=== PATIENT | male | born 1955 | race African-American/Black ===

== ENCOUNTER 2017-11-23 13:39 | Inpatient (IN) | payer MEDICARE ==
[~2017-11-23] VITALS: Ht 167.6 cm; Wt 64.1 kg
[2017-11-23 14:00] VITALS: BP 194/84; PULSE 77; RESP 20; TEMP 96.5; O2SAT 99
[2017-11-23] MEDS ORDERED: PERC5TAB12 PO (14:06)
[2017-11-23] MEDS ORDERED: ONDANSETRON HCL 4 MG/2 ML VIAL IM ONE (17:00)
[2017-11-23] MEDS ORDERED: MORPHINE SULFATE 4 MG/ML INJ IM ONE (17:00)
[2017-11-23 18:09] VITALS: BP 155/76; PULSE 74; RESP 18; O2SAT 98
--- NOTE | 2017-11-23 18:13 | RADRPT ---
EXAM DATE/TIME: 11/23/2017 17:47 [place] COMPARISON: No previous studies available for comparison. INDICATIONS : Fall last night. MEDICAL HISTORY : Hepatitis c. SURGICAL HISTORY : None. ENCOUNTER: Initial ACUITY: 1 day PAIN SCORE: 10/10 LOCATION: Left Hip FINDINGS: There is a comminuted intertrochanteric fracture of the left femur with medial angulation deformity. Femoral head appears intact. No subluxations. The bony pelvis is intact and has normal morphology. CONCLUSION: Mildly comminuted intertrochanteric fracture with medial angulation of the left femur. Artemio Champion MD on November 23, 2017 at 18:10 Board Certified Radiologist. This report was verified electronically.
[2017-11-23] MEDS ORDERED: SODIUM CHLORIDE 0.9% FLUSH 10 ML FLUSH IV FLUSH PRN ×2 (18:15→21:00)
[2017-11-23] MEDS ORDERED: SODIUM CHLOR 0.9% 1000 ML INJ 1,000 ML IV ONE (18:30)
[2017-11-23] MEDS ORDERED: ACETAMINOPHEN 1000 MG/100 ML 100 ML IV ONE (18:30)
[2017-11-23] MEDS ORDERED: MORPHINE SULFATE 2 MG/ML INJ IV PUSH ONE (18:30)
--- NOTE | 2017-11-23 18:46 | PD ---
HPI Chief Complaint: Hip Injury Time Seen by Provider: 17:47 Travel History International Travel<30 days: No Contact w/Intl Traveler<30days: No Traveled to known affect area: No History of Present Illness HPI Patient is a 62-year-old male presenting to emergency department for evaluation of left hip pain. Patient states had a mechanical fall in his kitchen last night landing on his left hip. He denies any head injury or loss of consciousness. He states his son was at home and helped him into a chair. He reports that he was unable to get out of the chair, unable to bear weight and his son helped him to bed. When he was unable to walk this morning he was brought to emergency department for evaluation. Patient states at rest his pain as a 2 out of 10, if he tries to ambulate or bear weight it's a 10 out of 10. He states his pain is throbbing and aching in nature. Symptom onset was sudden, symptom severity is moderate, there are no alleviating factors. Pain is exacerbated with movement. Patient denies significant past medical history other than chronic back and neck pain. He normally walks with a cane. PFSH Past Medical History Hepatitis: Yes (C) Musculoskeletal: Yes (CHRONIC BACK) Tetanus Vaccination: < 5 Years Past Surgical History Surgical History: No Previous Surgery Social History Alcohol Use: Yes (BEER) Tobacco Use: Yes (CIGARS) Substance Use: No (HX IV) Allergies-Medications (Allergen,Severity, Reaction): Coded Allergies: No Known Allergies (Unverified , 11/23/17) Reported Meds & Prescriptions Reported Meds & Active Scripts Active Reported Percocet (Oxycodone-Acetaminophen) 5-325 mg Tab 1-2 Tab PO Q4H PRN Review of Systems Except as stated in HPI: all other systems reviewed are Neg Musculoskeletal: Positive: Limited ROM, Pain Physical Exam Narrative GENERAL: Thin, well-developed, alert male. Presenting in no acute distress. SKIN: Warm and dry. HEAD: Atraumatic. Normocephalic. EYES: Pupils equal and round. No scleral icterus. No injection or drainage. ENT: No nasal bleeding or discharge. Mucous membranes pink and moist. NECK: Trachea midline. No JVD. CARDIOVASCULAR: Regular rate and rhythm. RESPIRATORY: No accessory muscle use. Clear to auscultation. Breath sounds equal bilaterally. GASTROINTESTINAL: Abdomen soft, non-tender, nondistended. Hepatic and splenic margins not palpable. MUSCULOSKELETAL: Extremities without clubbing, cyanosis, or edema. No obvious deformities. 2+ dorsalis pedal pulses bilaterally. NEUROLOGICAL: Awake and alert. No obvious cranial nerve deficits. Motor grossly within normal limits. Five out of 5 muscle strength in the arms and legs. Normal speech. PSYCHIATRIC: Appropriate mood and affect; insight and judgment normal. Data Data Last Documented VS Vital Signs Date Time Temp Pulse Resp B/P (MAP) Pulse Ox O2 Delivery O2 Flow Rate FiO2 11/23/17 18:09 74 18 155/76 (102) 98 Room Air 11/23/17 14:00 96.5 Orders Orders Hip, Uni(Ap&Lat) W Ap Pelvis (11/23/17 ) Morphine Inj (Morphine Inj) (11/23/17 17:00) Ondansetron Inj (Zofran Inj) (11/23/17 17:00) Complete Blood Count With Diff (11/23/17 18:) Comprehensive Metabolic Panel (11/23/17 18:) Act Partial Throm Time (Ptt) (11/23/17 18:) Prothrombin Time / Inr (Pt) (11/23/17 18:) Iv Access Insert/Monitor (11/23/17:) Ecg Monitoring (11/23/17 18:) Oximetry (11/23/17 18:) NPO (11/23/17 18:) Sodium Chloride 0.9% Flush (Ns Flush) (11/23/17:) Sodium Chlor 0.9% 1000 Ml Inj (Ns 1000 M (11/23/17 18:) Type And Screen (11/23/17 18:) Urinalysis - C+S If Indicated (11/23/17 18:) Morphine Inj (Morphine Inj) (11/23/17 18:) Acetaminophen 1000 Mg/100 Ml (Ofirmev 10 (11/23/17 18:) Creatine Kinase (Cpk) (11/23/17 18:20) CKMB (11/23/17 18:) CKMB% (11/23/17 18:) Admit Order (Ed Use Only) (11/23/17 20:01) Labs Laboratory Tests Test 11/23/17 18:20 White Blood Count 5.8 TH/MM3 Red Blood Count 4.98 MIL/MM3 Hemoglobin 15.6 GM/DL Hematocrit 45.9 % Mean Corpuscular Volume 92.3 FL Mean Corpuscular Hemoglobin 31.2 PG Mean Corpuscular Hemoglobin Concent 33.8 % Red Cell Distribution Width 13.6 % Platelet Count 169 TH/MM3 Mean Platelet Volume 7.8 FL Neutrophils (%) (Auto) 73.9 % Lymphocytes (%) (Auto) 14.7 % Monocytes (%) (Auto) 8.2 % Eosinophils (%) (Auto) 2.6 % Basophils (%) (Auto) 0.6 % Neutrophils # (Auto) 4.3 TH/MM3 Lymphocytes # (Auto) 0.9 TH/MM3 Monocytes # (Auto) 0.5 TH/MM3 Eosinophils # (Auto) 0.1 TH/MM3 Basophils # (Auto) 0.0 TH/MM3 CBC Comment DIFF FINAL Differential Comment Prothrombin Time 11.4 SEC Prothromb Time International Ratio 1.1 RATIO Activated Partial Thromboplast Time 29.3 SEC Urine Color YELLOW Urine Turbidity CLEAR Urine pH 5.5 Urine Specific [place] 1.018 Urine Protein TRACE mg/dL Urine Glucose (UA) NEG mg/dL Urine Ketones NEG mg/dL Urine Occult Blood NEG Urine Nitrite NEG Urine Bilirubin NEG Urine Urobilinogen 4.0 MG/DL Urine Leukocyte Esterase NEG Urine RBC 3 /hpf Urine WBC 2 /hpf Urine Squamous Epithelial Cells <1 /hpf Urine Amorphous Sediment RARE Urine Mucus FEW /lpf Urine Sperm RARE Microscopic Urinalysis Comment CULT NOT INDICATED Blood Urea Nitrogen 12 MG/DL Creatinine 0.91 MG/DL Random Glucose 90 MG/DL Total Protein 6.8 GM/DL Albumin 3.5 GM/DL Calcium Level 8.9 MG/DL Alkaline Phosphatase 72 U/L Aspartate Amino Transf (AST/SGOT) 40 U/L Alanine Aminotransferase (ALT/SGPT) 39 U/L Total Bilirubin 1.1 MG/DL Sodium Level 133 MEQ/L Potassium Level 4.3 MEQ/L Chloride Level 101 MEQ/L Carbon Dioxide Level 25.1 MEQ/L Anion Gap 7 MEQ/L Estimat Glomerular Filtration Rate 102 ML/MIN Total Creatine Kinase 602 U/L Creatine Kinase MB 10.5 NG/ML Creatine Kinase MB % 1.7 % [facility] Medical Decision Making Medical Screen Exam Complete: Yes Emergency Medical Condition: Yes Interpretation(s) Laboratory Tests Test 11/23/17 18:20 White Blood Count 5.8 TH/MM3 Red Blood Count 4.98 MIL/MM3 Hemoglobin 15.6 GM/DL Hematocrit 45.9 % Mean Corpuscular Volume 92.3 FL Mean Corpuscular Hemoglobin 31.2 PG Mean Corpuscular Hemoglobin Concent 33.8 % Red Cell Distribution Width 13.6 % Platelet Count 169 TH/MM3 Mean Platelet Volume 7.8 FL Neutrophils (%) (Auto) 73.9 % Lymphocytes (%) (Auto) 14.7 % Monocytes (%) (Auto) 8.2 % Eosinophils (%) (Auto) 2.6 % Basophils (%) (Auto) 0.6 % Neutrophils # (Auto) 4.3 TH/MM3 Lymphocytes # (Auto) 0.9 TH/MM3 Monocytes # (Auto) 0.5 TH/MM3 Eosinophils # (Auto) 0.1 TH/MM3 Basophils # (Auto) 0.0 TH/MM3 CBC Comment DIFF FINAL Differential Comment Prothrombin Time 11.4 SEC Prothromb Time International Ratio 1.1 RATIO Activated Partial Thromboplast Time 29.3 SEC Urine Color YELLOW Urine Turbidity CLEAR Urine pH 5.5 Urine Specific [place] 1.018 Urine Protein TRACE mg/dL Urine Glucose (UA) NEG mg/dL Urine Ketones NEG mg/dL Urine Occult Blood NEG Urine Nitrite NEG Urine Bilirubin NEG Urine Urobilinogen 4.0 MG/DL Urine Leukocyte Esterase NEG Urine RBC 3 /hpf Urine WBC 2 /hpf Urine Squamous Epithelial Cells <1 /hpf Urine Amorphous Sediment RARE Urine Mucus FEW /lpf Urine Sperm RARE Microscopic Urinalysis Comment CULT NOT INDICATED Blood Urea Nitrogen 12 MG/DL Creatinine 0.91 MG/DL Random Glucose 90 MG/DL Total Protein 6.8 GM/DL Albumin 3.5 GM/DL Calcium Level 8.9 MG/DL Alkaline Phosphatase 72 U/L Aspartate Amino Transf (AST/SGOT) 40 U/L Alanine Aminotransferase (ALT/SGPT) 39 U/L Total Bilirubin 1.1 MG/DL Sodium Level 133 MEQ/L Potassium Level 4.3 MEQ/L Chloride Level 101 MEQ/L Carbon Dioxide Level 25.1 MEQ/L Anion Gap 7 MEQ/L Estimat Glomerular Filtration Rate 102 ML/MIN Total Creatine Kinase 602 U/L Vital Signs Date Time Temp Pulse Resp B/P (MAP) Pulse Ox O2 Delivery O2 Flow Rate FiO2 3/15/18 18:09 74 18 155/76 (102) 98 Room Air 11/23/17 14:00 96.5 77 20 194/84 (120) 99 Differential Diagnosis Fracture versus dislocation versus sprain versus strain versus rhabdomyolysis versus other Narrative Course Patient is a 62-year-old male presenting to emergency for evaluation of left hip pain. Patient is neurovascularly intact, patient was initially evaluated in the ambulance haul, imaging was ordered, patient was given morphine and Zofran for pain. Patient was placed in a medical bed, x-ray shows a mildly comminuted intertrochanteric fracture with medial angulation of the left femur. Patient will be kept nothing by mouth, labs, IV access ordered. Patient be given additional dose of morphine as he is still stating his pain is elevated. He'll also be given dose of IV acetaminophen. CBC with no acute findings Chemistry with a CPK 602, patient was given 1 L of IV fluids Urinalysis is unremarkable Paged on-call orthopedic surgeon as well as hospitalist for admission. Patient is resting comfortably, vital signs are stable. Dr. Kirk accepted admission, admit orders placed. Waiting for orthopedic surgeon to return page. Discussed with Dr. Sanders, patient be placed in 5 pounds of Betts's traction, he will be kept nothing by mouth after midnight. He will see patient in the morning. Diagnosis Primary Impression: Femur fracture, left Qualified Codes: S72.142A - Displaced intertrochanteric fracture of left femur , initial encounter for closed fracture Admitting Information Admitting Physician Requests: Admit Condition: Stable Lilliana Butler Nov 23, 2017 18:46
[2017-11-23 18:49] LABS: AUTOMATED NEUTROPHIL # 4.3 TH/MM3 (1.8-7.7); BASOPHIL % 0.6 % (0.0-2.0); EOSINOPHIL # 0.1 TH/MM3 (0-0.4); EOSINOPHIL % 2.6 % (0.0-4.0); HEMATOCRIT 45.9 % (39.0-51.0); HEMOGLOBIN 15.6 GM/DL (13.0-17.0); LYMPH % 14.7 % (9.0-44.0); LYMPHOCYTE # 0.9 TH/MM3 (1.0-4.8); MEAN CELL VOLUME 92.3 FL (80.0-100.0); MEAN CORPUSCULAR HEMOGLOBIN 31.2 PG (27.0-34.0); MEAN CORPUSCULAR HGB CONC 33.8 % (32.0-36.0); MEAN PLATELET VOLUME 7.8 FL (7.0-11.0); MONO % 8.2 % (0.0-8.0); MONOCYTE # 0.5 TH/MM3 (0-0.9); NEUT % 73.9 % (16.0-70.0); PLATELET COUNT 169 TH/MM3 (150-450); RED BLOOD COUNT 4.98 MIL/MM3 (4.50-5.90); RED CELL DISTRIBUTION WIDTH 13.6 % (11.6-17.2); WHITE BLOOD COUNT 5.8 TH/MM3 (4.0-11.0)
--- NOTE | 2017-11-23 18:55 | PD ---
Physical Exam Date Seen by Provider: Nov 23, 2017 Time Seen by Provider: 18:30 Narrative I, Dr. Alicea, have reviewed the advance practice practitioner's documentation and am in agreement, met with the patient face to face, made the diagnosis, and the medical decision making was done by me. *My assessment and Findings: Patient is seen and evaluated with PA, please see PA note for further details. Here because he fell onto his left hip, having hip pain, unable to walk. He has a hip fracture seen in the x-ray. He denies any other injury or head injury or loss of consciousness. Case will need to be discussed with Dr. Narvaez of orthopedics. Lab work initiated. Data Data Last Documented VS Vital Signs Date Time Temp Pulse Resp B/P (MAP) Pulse Ox O2 Delivery O2 Flow Rate FiO2 11/23/17 18:09 74 18 155/76 (102) 98 Room Air 11/23/17 14:00 96.5 Orders Orders Hip, Uni(Ap&Lat) W Ap Pelvis (11/23/17 ) Morphine Inj (Morphine Inj) (11/23/17 17:00) Ondansetron Inj (Zofran Inj) (11/23/17 17:00) Complete Blood Count With Diff (11/23/17 18:09) Comprehensive Metabolic Panel (11/23/17 18:09) Act Partial Throm Time (Ptt) (11/23/17 18:09) Prothrombin Time / Inr (Pt) (11/23/17 18:09) Iv Access Insert/Monitor (11/23/17 18:) Ecg Monitoring (11/23/17 18:) Oximetry (11/23/17 18:) NPO (11/23/17 18:09) Sodium Chloride 0.9% Flush (Ns Flush) (11/23/17 18:) Sodium Chlor 0.9% 1000 Ml Inj (Ns 1000 M (11/23/17 18:30) Type And Screen (11/23/17:) Urinalysis - C+S If Indicated (11/23/17 18:22) Morphine Inj (Morphine Inj) (11/23/17 18:30) Acetaminophen 1000 Mg/100 Ml (Ofirmev 10 (11/23/17 18:30) Creatine Kinase (Cpk) (11/23/17 18:20) Labs Laboratory Tests Test 11/23/17 18:20 White Blood Count 5.8 TH/MM3 Red Blood Count 4.98 MIL/MM3 Hemoglobin 15.6 GM/DL Hematocrit 45.9 % Mean Corpuscular Volume 92.3 FL Mean Corpuscular Hemoglobin 31.2 PG Mean Corpuscular Hemoglobin Concent 33.8 % Red Cell Distribution Width 13.6 % Platelet Count 169 TH/MM3 Mean Platelet Volume 7.8 FL Neutrophils (%) (Auto) 73.9 % Lymphocytes (%) (Auto) 14.7 % Monocytes (%) (Auto) 8.2 % Eosinophils (%) (Auto) 2.6 % Basophils (%) (Auto) 0.6 % Neutrophils # (Auto) 4.3 TH/MM3 Lymphocytes # (Auto) 0.9 TH/MM3 Monocytes # (Auto) 0.5 TH/MM3 Eosinophils # (Auto) 0.1 TH/MM3 Basophils # (Auto) 0.0 TH/MM3 CBC Comment DIFF FINAL Differential Comment MDM Medical Record Reviewed: Yes Supervised Visit with GONZALEZ: Yes Diagnosis Primary Impression: Closed left hip fracture Admitting Information Admitting Physician Requests: Admit Merlin Alicea MD Nov 23, 2017 18:55
[2017-11-23 18:56] LABS: AMORPHOUS SEDIMENT, URINE RARE; BILIRUBIN, URINE NEG (NEG); BLOOD, URINE NEG (NEG); GLUCOSE,URINE NEG (NEG); KETONE, URINE NEG (NEG); MUCUS URINE FEW /lpf (OCC); NITRITE,URINE NEG (NEG); PH, URINE 5.5 (5.0-8.5); SPERM, URINE RARE; SQUAMOUS EPITHELIAL CELL URINE <1 /hpf (0-5); URINE COLOR YELLOW (YELLW/STRAW); URINE LEUKOCYTE ESTERASE NEG (NEG)
[2017-11-23 19:08] LABS: ALBUMIN 3.5 GM/DL (3.4-5.0); ALT (GPT) 39 U/L (12-78); AST (GOT) 40 U/L (15-37); BICARBONATE 25.1 MEQ/L (21.0-32.0); BLOOD UREA NITROGEN 12 MG/DL (7-18); CALCIUM 8.9 MG/DL (8.5-10.1); CHLORIDE 101 MEQ/L (98-107); CREATININE 0.91 MG/DL (0.60-1.30); GLOMERULAR FILTRATION RATE 102 ML/MIN (>89); GLUCOSE,RANDOM 90 MG/DL (74-106); SODIUM (NA) 133 MEQ/L (136-145)
[2017-11-23 19:09] LABS: INTERNATIONAL NORMALIZED RATIO 1.1 RATIO; PROTHROMBIN TIME - PATIENT 11.4 SEC (9.8-11.6)
[2017-11-23 19:11] LABS: ALKALINE PHOSPHATASE 72 U/L (45-117); TOTAL BILIRUBIN ADULT 1.1 MG/DL (0.2-1.0); TOTAL PROTEIN 6.8 GM/DL (6.4-8.2)
[2017-11-23] MEDS: DOCUSATE SODIUM 50 MG/SENNA 8.6 MG TAB PO SCH ×2 (21:00→23:29)
[2017-11-23] MEDS ORDERED: ACETAMINOPHEN 325 MG TAB PO PRN (21:00)
[2017-11-23] MEDS ORDERED: ONDANSETRON HCL 4 MG/2 ML VIAL IVP PRN (21:00)
[2017-11-23] MEDS ORDERED: LACTULOSE SYRUP 20 GM/30 ML CUP PO PRN (21:00)
[2017-11-23] MEDS ORDERED: MAGNESIUM HYDROXIDE SUSP 30 ML CUP PO PRN (21:00)
[2017-11-23] MEDS ORDERED: NALOXONE HCL 0.4 MG/ML AMP IV PUSH PRN (21:00)
[2017-11-23] MEDS ORDERED: SENNOSIDES 8.6 MG TAB PO PRN (21:00)
[2017-11-23] MEDS ORDERED: BISACODYL 10 MG SUPP RECTAL PRN (21:00)
[2017-11-23 21:20] VITALS: BP 120/57; PULSE 76; RESP 18; TEMP 98.7; O2SAT 95
[2017-11-23] MEDS ORDERED: TAMSULOSIN HCL 0.4 MG CAP PO ONE (22:00)
[2017-11-23] MEDS: SODIUM CHLORIDE 0.9% FLUSH 10 ML FLUSH IV FLUSH SCH (22:01)
[2017-11-23] MEDS: SODIUM CHLOR 0.9% 1000 ML INJ 1,000 ML IV SCH (22:06)
--- NOTE | 2017-11-23 22:14 | HHI.HP ---
[facility] Unknown Admission Diagnosis LEFT FEMUR FRACTURE Diagnoses: Travel History International Travel<30 Days: No Contact w/Intl Traveler <30 Da: No Traveled to Known Affected Are: No History of Present Illness 62-year-old male with a past medical history significant for chronic back pain and BPH presents to the emergency department status post a fall. The patient reports last night he slipped and fell on a tile floor and fell onto his left side. He was unable to stand at that time and his son helped him to bed. He reports that today he found he was unable to weight-bear or walking came to the emergency department for further evaluation. Review of Systems Except as stated in HPI: all other systems reviewed are Neg Denies fever or chills Denies blurry vision, otorrhea, rhinorrhea Denies sore throat and cough No chest pain, palpitations No shortness of breath or wheezing No abdominal pain Denies constipation/diarrhea/nausea/vomiting Denies muscle pain Denies focal weakness No rashes Past Family Social History Past Medical History Chronic back pain BPH Past Surgical History C5-6 fusion Reported Medications Reported Meds & Active Scripts Active Reported Percocet (Oxycodone-Acetaminophen) 5-325 mg Tab 1-2 Tab PO Q4H PRN Allergies: Coded Allergies: No Known Allergies (Unverified , 11/23/17) Family History Mother with diabetes mellitus Social History Smokes cigars. Drinks approximately 4 beers per day. Denies illicit drugs. Physical Exam Vital Signs Vital Signs Date Time Temp Pulse Resp B/P (MAP) Pulse Ox O2 Delivery O2 Flow Rate FiO2 11/23/17 21:20 98.7 76 18 120/57 (78) 95 11/23/17 18:09 74 18 155/76 (102) 98 Room Air 11/23/17 14:00 96.5 77 20 194/84 (120) 99 Physical Exam GENERAL: male lying in bed SKIN: No rashes, ecchymoses or lesions. Cool and dry. HEAD: Atraumatic. Normocephalic. No temporal or scalp tenderness. EYES: Pupils equal round and reactive. Extraocular motions intact. No scleral icterus. No injection or drainage. ENT: Nose without bleeding, purulent drainage or septal hematoma. Throat without erythema, tonsillar hypertrophy or exudate. Uvula midline. Airway patent. NECK: Trachea midline. No JVD or lymphadenopathy. Supple, nontender, no meningeal signs. CARDIOVASCULAR: Regular rate and rhythm without murmurs, gallops, or rubs. RESPIRATORY: Clear to auscultation. Breath sounds equal bilaterally. No wheezes , rales, or rhonchi. GASTROINTESTINAL: Abdomen soft, non-tender, nondistended. No hepato-splenomegaly , or palpable masses. No guarding. MUSCULOSKELETAL: Left leg held in flexion, neurovascularly intact NEUROLOGICAL: Awake and alert. Cranial nerves II through XII intact. Motor and sensory grossly within normal limits. Normal speech. Laboratory Laboratory Tests Test 11/23/17 18:20 White Blood Count 5.8 Red Blood Count 4.98 Hemoglobin 15.6 Hematocrit 45.9 Mean Corpuscular Volume 92.3 Mean Corpuscular Hemoglobin 31.2 Mean Corpuscular Hemoglobin Concent 33.8 Red Cell Distribution Width 13.6 Platelet Count 169 Mean Platelet Volume 7.8 Neutrophils (%) (Auto) 73.9 Lymphocytes (%) (Auto) 14.7 Monocytes (%) (Auto) 8.2 Eosinophils (%) (Auto) 2.6 Basophils (%) (Auto) 0.6 Neutrophils # (Auto) 4.3 Lymphocytes # (Auto) 0.9 Monocytes # (Auto) 0.5 Eosinophils # (Auto) 0.1 Basophils # (Auto) 0.0 CBC Comment DIFF FINAL Differential Comment Prothrombin Time 11.4 Prothromb Time International Ratio 1.1 Activated Partial Thromboplast Time 29.3 Urine Color YELLOW Urine Turbidity CLEAR Urine pH 5.5 Urine Specific [place] 1.018 Urine Protein TRACE Urine Glucose (UA) NEG Urine Ketones NEG Urine Occult Blood NEG Urine Nitrite NEG Urine Bilirubin NEG Urine Urobilinogen 4.0 Urine Leukocyte Esterase NEG Urine RBC 3 Urine WBC 2 Urine Squamous Epithelial Cells <1 Urine Amorphous Sediment RARE Urine Mucus FEW Urine Sperm RARE Microscopic Urinalysis Comment CULT NOT INDICATED Blood Urea Nitrogen 12 Creatinine 0.91 Random Glucose 90 Total Protein 6.8 Albumin 3.5 Calcium Level 8.9 Alkaline Phosphatase 72 Aspartate Amino Transf (AST/SGOT) 40 Alanine Aminotransferase (ALT/SGPT) 39 Total Bilirubin 1.1 Sodium Level 133 Potassium Level 4.3 Chloride Level 101 Carbon Dioxide Level 25.1 Anion Gap 7 Estimat Glomerular Filtration Rate 102 Total Creatine Kinase 602 Creatine Kinase MB 10.5 Creatine Kinase MB % 1.7 Result Diagram: 11/23/17181911/23/171819 Caprini VTE Risk Assessment Caprini VTE Risk Assessment: Mod/High Risk (score >= 2) Caprini Risk Assessment Model Point Value = 1 Point Value = 2 Point Value = 3 Point Value = 5 Age 41-60 Minor surgery BMI > 25 kg/m2 Swollen legs Varicose veins or History of unexplained or recurrent spontaneous Oral contraceptives or hormone replacement Sepsis (< 1 month) Serious lung disease, including pneumonia (< 1 month) Abnormal pulmonary function Acute myocardial infarction Congestive heart failure (< 1 month) History of inflammatory bowel disease Medical patient at bed rest Age 61-74 Arthroscopic surgery Major open surgery (> 45 min) Laparoscopic surgery (> 45 min) Malignancy Confined to bed (> 72 hours) Immobilizing plaster cast Central venous access Age >= 75 History of VTE Family history of VTE Factor V Leiden Prothrombin [id number] Lupus anticoagulant Anticardiolipin antibodies Elevated serum homocysteine Heparin-induced thrombocytopenia Other congenital or acquired thrombophilia Stroke (< 1 month) Elective arthroplasty Hip, pelvis, or leg fracture Acute spinal cord injury (< 1 month) Prophylaxis Regimen Total Risk Factor Score Risk Level Prophylaxis Regimen 0-1 Low Early ambulation 2 Moderate Order ONE of the following: *Sequential Compression Device (SCD) *Heparin 5000 units SQ BID 3-4 Higher Order ONE of the following medications: *Heparin 5000 units SQ TID *Enoxaparin/Lovenox 40 mg SQ daily (WT < 150 kg, CrCl > 30 mL/min) *Enoxaparin/Lovenox 30 mg SQ daily (WT < 150 kg, CrCl > 10-29 mL/min) *Enoxaparin/Lovenox 30 mg SQ BID (WT < 150 kg, CrCl > 30 mL/min) AND/OR *Sequential Compression Device (SCD) 5 or more Highest Order ONE of the following medications: *Heparin 5000 units SQ TID (Preferred with Epidurals) *Enoxaparin/Lovenox 40 mg SQ daily (WT < 150 kg, CrCl > 30 mL/min) *Enoxaparin/Lovenox 30 mg SQ daily (WT < 150 kg, CrCl > 10-29 mL/min) *Enoxaparin/Lovenox 30 mg SQ BID (WT < 150 kg, CrCl > 30 mL/min) AND *Sequential Compression Device (SCD) Assessment and Plan Assessment and Plan Assessment/plan: 1. Femur fracture Hip x-ray significant for mildly comminuted intertrochanteric fracture with medial angulation of the left femur Morphine for pain Nothing by mouth Orthopedic surgery consulted, appreciate assistance 2. Elevated CK Likely secondary to fall IV fluid hydration 3. BPH/chronic back pain Continue home Flomax Pain management as above FEN NPO NS at 100 cc/hour Electrolytes: Monitor and replete prn Holding pharmacologic anticoagulation in anticipation of operative intervention Physician Certification 2 Midnight Certification Type: Admission for Inpatient Services Order for Inpatient Services The services are ordered in accordance with Medicare regulations or non- Medicare payer requirements, as applicable. In the case of services not specified as inpatient-only, they are appropriately provided as inpatient services in accordance with the 2-midnight benchmark. Estimated LOS (days): 2 2 days is the estimated time the patient will need to remain in the hospital, assuming treatment plan goals are met and no additional complications. Post-Hospital Plan: Not yet determined Fior Kirk MD Nov 23, 2017 22:14
[2017-11-23] MEDS ORDERED: LORazepam 1 MG TAB PO PRN (22:15)
[2017-11-23] MEDS ORDERED: LORazepam 2 MG/ML VIAL IV PUSH PRN ×4 (22:15)
[2017-11-23] MEDS ORDERED: FLUMAZENIL 0.5 MG/5 ML VIAL IV PUSH PRN (22:15)
[2017-11-23] MEDS ORDERED: LORazepam 2 MG TAB PO PRN (22:15)
[2017-11-23] MEDS: MORPHINE SULFATE 4 MG/ML INJ IV PUSH PRN (23:31)
[2017-11-24] VITALS: BP 120/59; PULSE 68; PULSE 77; PULSE 82; RESP 18; TEMP 99.1; O2SAT 96
[2017-11-24] MEDS: MORPHINE SULFATE 4 MG/ML INJ IV PUSH PRN ×2 (03:25→11:36)
[2017-11-24 04:00] VITALS: BP 158/88; PULSE 70; RESP 18; TEMP 99.4; O2SAT 97
[2017-11-24] MEDS: SODIUM CHLOR 0.9% 1000 ML INJ 1,000 ML IV SCH ×2 (06:31→17:00)
[2017-11-24 07:13] LABS: BASOPHIL % 0.3 % (0.0-2.0); EOSINOPHIL # 0.2 TH/MM3 (0-0.4); EOSINOPHIL % 2.4 % (0.0-4.0); HEMATOCRIT 43.5 % (39.0-51.0); HEMOGLOBIN 14.9 GM/DL (13.0-17.0); LYMPH % 14.3 % (9.0-44.0); MEAN CORPUSCULAR HEMOGLOBIN 31.8 PG (27.0-34.0); MEAN CORPUSCULAR HGB CONC 34.2 % (32.0-36.0); MONO % 8.7 % (0.0-8.0); MONOCYTE # 0.6 TH/MM3 (0-0.9); NEUT % 74.3 % (16.0-70.0); PLATELET COUNT 154 TH/MM3 (150-450); RED BLOOD COUNT 4.68 MIL/MM3 (4.50-5.90); RED CELL DISTRIBUTION WIDTH 13.5 % (11.6-17.2); WHITE BLOOD COUNT 6.8 TH/MM3 (4.0-11.0)
[2017-11-24 07:41] LABS: BICARBONATE 25.2 MEQ/L (21.0-32.0); CALCIUM 8.6 MG/DL (8.5-10.1); CREATININE 0.87 MG/DL (0.60-1.30)
--- NOTE | 2017-11-24 07:50 | PD.CONS ---
HPI Service Orthopedic Surgeons Consult Requested By Dr. Fior Kirk Reason for Consult Fracture of the left hip Primary Care Physician Unknown Admission Diagnosis LEFT FEMUR FRACTURE Diagnoses: Chief Complaint: Left hip pain and inability to ambulate History of Present Illness This is a very pleasant 62-year-old male who states that 2 nights ago he slipped and fell at home landing on his left hip. His son helped him to bed. The next day, he had difficulty with ambulation and presented to [facility] emergency room. X-ray showed evidence of a mildly comminuted but relatively nondisplaced left peritrochanteric hip fracture. I have been asked to see him in consultation regarding his orthopedic injuries Review of Systems Constitutional: DENIES: Diaphoretic episodes, Fatigue, Fever, Weight gain, Weight loss, Chills, Dizziness, Change in appetite, Night Sweats Endocrine: DENIES: Heat/cold intolerance, Polydipsia, Polyuria, Polyphagia Eyes: DENIES: Blurred vision, Diplopia, Eye inflammation, Eye pain, Vision loss , Photosensitivity, Double Vision Ears, nose, mouth, throat: DENIES: Tinnitus, Hearing loss, Vertigo, Nasal discharge, Oral lesions, Throat pain, Hoarseness, Ear Pain, Running Nose, Epistaxis, Sinus Pain, Toothache, Odynophagia Respiratory: DENIES: Apneas, Cough, Snoring, Wheezing, Hemoptysis, Sputum production, Shortness of breath Cardiovascular: DENIES: Chest pain, Palpitations, Syncope, Dyspnea on Exertion , PND, Lower Extremity Edema, Orthopnea, Claudication Gastrointestinal: DENIES: Abdominal pain, Black stools, Bloody stools, Constipation, Diarrhea, Nausea, Vomiting, Difficulty Swallowing, Anorexia Genitourinary: DENIES: Sexual dysfunction, Urinary frequency, Urinary incontinence, Urgency, Hematuria, Dysuria, Nocturia, Penile Discharge, Testicular Pain, Testicular Swelling Musculoskeletal: COMPLAINS OF: Joint pain, Back pain Integumentary: DENIES: Abnormal pigmentation, Nail changes, Pruritus, Rash Hematologic/lymphatic: DENIES: Bruising, Lymphadenopathy Immunologic/allergic: DENIES: Eczema, Urticaria Neurologic: DENIES: Abnormal gait, Headache, Localized weakness, Paresthesias, Seizures, Speech Problems, Tremor, Poor Balance Psychiatric: DENIES: Anxiety, Confusion, Mood changes, Depression, Hallucinations, Agitation, Suicidal Ideation, Homicidal Ideation, Delusions Past Family Social History Past Medical History Chronic back pain BPH Past Surgical History C5-6 fusion Allergies: Coded Allergies: No Known Allergies (Unverified , 11/23/17) Active Ordered Medications Current Medications Medications (Trade) Dose Ordered Sig/Irina Route Start Time Stop Time Status Last Admin Sodium Chloride 1,000 ml @ 100 mls/hr Q10H IV 11/23/17 21:00 11/23/17 22:06 (NS Flush) 2 ml UNSCH PRN IV FLUSH 11/23/17 21:00 (NS Flush) 2 ml BID IV FLUSH 11/23/17 21:00 11/23/17 22:01 (Tylenol) 650 mg Q4H PRN PO 11/23/17 21:00 (Zofran Inj) 4 mg Q6H PRN IVP 11/23/17 21:00 (Narcan Inj) 0.4 mg UNSCH PRN IV PUSH 11/23/17 21:00 (Bhumi-Colace) 1 tab BID PO 11/23/17 21:00 11/23/17 23:29 (Milk Of Magnesia Liq) 30 ml Q12H PRN PO 11/23/17 21:00 (Senokot) 17.2 mg Q12H PRN PO 11/23/17 21:00 (Dulcolax Supp) 10 mg DAILY PRN RECTAL 11/23/17 21:00 (Lactulose Liq) 30 ml DAILY PRN PO 11/23/17 21:00 (Morphine Inj) 4 mg Q3H PRN IV PUSH 11/23/17 21:00 11/24/17 03:25 (Folate) 1 mg DAILY PO 11/24/17 09:00 11/29/17 08:59 (Vitamin B1) 100 mg DAILY PO 11/24/17 09:00 (Theragran M Tab) 1 tab DAILY PO 11/24/17 09:00 11/29/17 08:59 (Romazicon Inj) 0.2 mg Q1M PRN IV PUSH 11/23/17 22:15 (Ativan) 1 mg Q4H PRN PO 11/23/17 22:15 (Ativan Inj) 1 mg Q4H PRN IV PUSH 11/23/17 22:15 (Ativan) 2 mg Q2H PRN PO 11/23/17 22:15 (Ativan Inj) 2 mg Q2H PRN IV PUSH 11/23/17 22:15 (Ativan Inj) 2 mg Q1H PRN IV PUSH 11/23/17 22:15 (Ativan Inj) 2 mg Q15M PRN IV PUSH 11/23/17 22:15 Reported Meds & Active Scripts Active Reported Percocet (Oxycodone-Acetaminophen) 5-325 mg Tab 1-2 Tab PO Q4H PRN Family History Mother with diabetes mellitus Social History Smokes cigars. Drinks approximately 4 beers per day. Denies illicit drugs. Physical Exam Vital Signs Vital Signs Date Time Temp Pulse Resp B/P (MAP) Pulse Ox O2 Delivery O2 Flow Rate FiO2 11/24/17 04:00 99.4 70 18 158/88 (111) 97 11/24/17 03:35 18 11/24/17 00:00 99.1 68 18 120/59 (79) 96 11/24/17 00:00 77 11/24/17 00:00 82 11/23/17 21:20 98.7 76 18 120/57 (78) 95 11/23/17 18:09 74 18 155/76 (102) 98 Room Air 11/23/17 14:00 96.5 77 20 194/84 (120) 99 Physical Exam The patient is lying in bed. He is in Betts's traction. HEENT: Normocephalic atraumatic pupils equal round reactive. NECK: Supple. No abnormal masses. Full range of motion. CHEST: Clear to auscultation with no rales or rhonchi's or wheezes. HEART: Regular rate and rhythm. No murmurs. ABDOMEN: Soft, nontender, no masses. Normal active bowel sounds. GENITOURINARY: Deferred. MUSCULOSKELETAL: He has moderate tenderness and mild swelling of the left hip. Range of motion is restricted and painful. No ecchymosis or redness. He has no tenderness about either upper extremity. He has moderate low back discomfort to palpation. Left leg: Dorsalis pedis 2+. Sensation normal. He wiggles his toes freely without obvious discomfort. Laboratory Laboratory Tests Test 11/23/17 18:20 11/24/17 06:23 White Blood Count 5.8 6.8 Red Blood Count 4.98 4.68 Hemoglobin 15.6 14.9 Hematocrit 45.9 43.5 Mean Corpuscular Volume 92.3 93.0 Mean Corpuscular Hemoglobin 31.2 31.8 Mean Corpuscular Hemoglobin Concent 33.8 34.2 Red Cell Distribution Width 13.6 13.5 Platelet Count 169 154 Mean Platelet Volume 7.8 8.0 Neutrophils (%) (Auto) 73.9 74.3 Lymphocytes (%) (Auto) 14.7 14.3 Monocytes (%) (Auto) 8.2 8.7 Eosinophils (%) (Auto) 2.6 2.4 Basophils (%) (Auto) 0.6 0.3 Neutrophils # (Auto) 4.3 5.0 Lymphocytes # (Auto) 0.9 1.0 Monocytes # (Auto) 0.5 0.6 Eosinophils # (Auto) 0.1 0.2 Basophils # (Auto) 0.0 0.0 CBC Comment DIFF FINAL DIFF FINAL Differential Comment Prothrombin Time 11.4 Prothromb Time International Ratio 1.1 Activated Partial Thromboplast Time 29.3 Urine Color YELLOW Urine Turbidity CLEAR Urine pH 5.5 Urine Specific [place] 1.018 Urine Protein TRACE Urine Glucose (UA) NEG Urine Ketones NEG Urine Occult Blood NEG Urine Nitrite NEG Urine Bilirubin NEG Urine Urobilinogen 4.0 Urine Leukocyte Esterase NEG Urine RBC 3 Urine WBC 2 Urine Squamous Epithelial Cells <1 Urine Amorphous Sediment RARE Urine Mucus FEW Urine Sperm RARE Microscopic Urinalysis Comment CULT NOT INDICATED Blood Urea Nitrogen 12 12 Creatinine 0.91 0.87 Random Glucose 90 85 Total Protein 6.8 Albumin 3.5 Calcium Level 8.9 8.6 Alkaline Phosphatase 72 Aspartate Amino Transf (AST/SGOT) 40 Alanine Aminotransferase (ALT/SGPT) 39 Total Bilirubin 1.1 Sodium Level 133 136 Potassium Level 4.3 4.2 Chloride Level 101 101 Carbon Dioxide Level 25.1 25.2 Anion Gap 7 10 Estimat Glomerular Filtration Rate 102 108 Total Creatine Kinase 602 Creatine Kinase MB 10.5 Creatine Kinase MB % 1.7 Result Diagram: 11/24/1723 11/24/17 0623 Imaging Review of x-rays and review of the radiologist's interpretation shows evidence of a mildly comminuted low intertrochanteric hip fracture with minimal displacement Assessment & Plan Assessment and Plan Left peritrochanteric hip fracture, comminuted. Chronic low back pain on narcotics, Percocet 5 mg PLAN: Surgical treatment: Open treatment internal fixation with trochanteric nail. Consent: There are risks with surgery including infection, bleeding, loss of motion, continued pain, need for further surgery neurologic or vascular injury. He understands these issues and wishes to proceed forward with surgery as outlined above. Anticoagulation: Anticipate 81 mg aspirin twice a day for 30 days postoperative. Surgery today. The patient is on chronic pain medications prescribed by another physician. We will prescribe one prescription of narcotics at the time of his discharge and further narcotic treatment for chronic back pain would be directed by his present treating pain management physician. This was discussed with the patient and he agrees Twin Richardson MD Nov 24, 2017 07:50
[2017-11-24 08:00] VITALS: BP 125/69; PULSE 76; RESP 16; TEMP 98.9; O2SAT 96
[2017-11-24] MEDS: THIAMINE HCL 100 MG TAB PO SCH (09:00)
[2017-11-24] MEDS: SODIUM CHLORIDE 0.9% FLUSH 10 ML FLUSH IV FLUSH SCH ×2 (09:00→21:00)
[2017-11-24] MEDS: FOLIC ACID 1 MG TAB PO SCH (09:00)
[2017-11-24] MEDS: MULTIVITAMINS/MINERALS THERAPEUTIC TAB PO SCH (09:00)
[2017-11-24] MEDS ORDERED: GENTAMICIN SULFATE 80 MG/2 ML VIAL ONE ×2 (10:22→12:09)
[2017-11-24] MEDS ORDERED: fentaNYL CITRATE 250 MCG/5 ML AMP ONE (11:43)
[2017-11-24] MEDS ORDERED: MIDAZOLAM HCL 2 MG/2 ML VIAL ONE (11:43)
[2017-11-24] MEDS ORDERED: FAMOTIDINE 20 MG/2 ML VIAL ONE (11:43)
[2017-11-24] MEDS ORDERED: ACETAMINOPHEN 1000 MG/100 ML 100 ML IV ONE (11:43)
[2017-11-24] MEDS ORDERED: GLYCOPYRROLATE 1 MG/5 ML SYRINGE IV PUSH ONE (12:00)
[2017-11-24] MEDS ORDERED: ROCURONIUM INJ 50 MG/5 ML SYRINGE IV PUSH ONE (12:00)
[2017-11-24] MEDS ORDERED: ONDANSETRON HCL 4 MG/2 ML VIAL IV ONE (12:00)
[2017-11-24] MEDS ORDERED: NEOSTIGMINE 5 MG/5 ML SYRINGE IV PUSH ONE (12:00)
[2017-11-24] MEDS ORDERED: DEXAMETHASONE SOD PHOS 4 MG/ML VIAL IV ONE (12:00)
[2017-11-24] MEDS ORDERED: ePHEDrine/NS 25 MG/5 ML SYRINGE IV ONE (12:00)
[2017-11-24] MEDS ORDERED: PHENYLEPH/NS 1000 MCG/10 ML SYR IV ONE (12:00)
[2017-11-24] MEDS ORDERED: LIDOCAINE HCL 1% PF 5 ML SYRINGE OTHER ONE (12:00)
[2017-11-24] MEDS ORDERED: ceFAZolin INJ 1,000 MG VIAL IV ONE (12:00)
[2017-11-24] MEDS ORDERED: PROPOFOL 200 MG/20 ML AMP IV ONE (12:00)
--- NOTE | 2017-11-24 13:12 | HHI.PR ---
Subjective Remarks Follow up on patient s/p fall with left femur fracture. Patient seen and examined. Patient complaining of back pain and spasms. States he has a disability from chronic back pain secondary to lumbar disc disease. Patient denies any fever or chills. Denies any chest pain or shortness of breath. Denies any nausea, vomiting or abdominal pain. Objective Vitals Vital Signs Date Time Temp Pulse Resp B/P (MAP) Pulse Ox O2 Delivery O2 Flow Rate FiO2 11/24/17 08:00 98.9 76 16 125/69 (87) 96 11/24/17 04:00 99.4 70 18 158/88 (111) 97 11/24/17 03:35 18 11/24/17 00:00 99.1 68 18 120/59 (79) 96 11/24/17 00:00 77 11/24/17 00:00 82 11/23/17 21:20 98.7 76 18 120/57 (78) 95 11/23/17 18:09 74 18 155/76 (102) 98 Room Air 11/23/17 14:00 96.5 77 20 194/84 (120) 99 I/O 11/23/17 11/23/17 11/23/17 11/24/17 11/24/17 11/24/17 07:00 15:00 23:00 07:00 15:00 23:00 Intake Total 0 ml Output Total 350 ml 200 ml Balance -350 ml -200 ml Intake Oral 0 ml Output Urine Total 350 ml 200 ml # Bowel Movements 0 Result Diagram: 11/24/17 0623 11/24/17 0623 Imaging Last Impressions Hip and Pelvis X-Ray 11/23/17 0000 Signed Impressions: Service Date/Time: November 17:47 - CONCLUSION: Mildly comminuted intertrochanteric fracture with medial angulation of the left femur. Artemio Champion MD Objective Remarks GENERAL: WDWN male lying in bed, INAD. Awake and alert. SKIN: Cool and dry. HEAD: Atraumatic. Normocephalic. EYES: Extraocular motions intact. No scleral icterus. No injection or drainage. ENT: Nose without bleeding or purulent drainage. Airway patent. MMM. NECK: Trachea midline. CARDIOVASCULAR: Regular rate and rhythm without murmurs, gallops, or rubs. RESPIRATORY: Clear to auscultation. Breath sounds equal bilaterally. No wheezes , rales, or rhonchi. GASTROINTESTINAL: Abdomen soft, non-tender, nondistended. MUSCULOSKELETAL: Left leg in [place] traction. N/V intact distally. NEUROLOGICAL: Awake and alert. Cranial nerves grossly intact. Able to move all extremities spontaneously. No focal neurologic finding appreciated. Normal speech. Medications and IVs Current Medications Medications (Trade) Dose Ordered Sig/Irina Route Start Time Stop Time Status Last Admin Sodium Chloride 1,000 ml @ 100 mls/hr Q10H IV 11/23/17 21:00 11/23/17 22:06 (NS Flush) 2 ml UNSCH PRN IV FLUSH 11/23/17 21:00 (NS Flush) 2 ml BID IV FLUSH 11/23/17 21:00 11/24/17 09:00 (Tylenol) 650 mg Q4H PRN PO 11/23/17 21:00 (Zofran Inj) 4 mg Q6H PRN IVP 11/23/17 21:00 (Narcan Inj) 0.4 mg UNSCH PRN IV PUSH 11/23/17 21:00 (Bhumi-Colace) 1 tab BID PO 11/23/17 21:00 11/23/17 23:29 (Milk Of Magnesia Liq) 30 ml Q12H PRN PO 11/23/17 21:00 (Senokot) 17.2 mg Q12H PRN PO 11/23/17 21:00 (Dulcolax Supp) 10 mg DAILY PRN RECTAL 11/23/17 21:00 (Lactulose Liq) 30 ml DAILY PRN PO 11/23/17 21:00 (Morphine Inj) 4 mg Q3H PRN IV PUSH 11/23/17 21:00 11/24/17 11:36 (Folate) 1 mg DAILY PO 11/24/17 09:00 11/29/17 08:59 (Vitamin B1) 100 mg DAILY PO 11/24/17 09:00 (Theragran M Tab) 1 tab DAILY PO 11/24/17 09:00 11/29/17 08:59 (Romazicon Inj) 0.2 mg Q1M PRN IV PUSH 11/23/17 22:15 (Ativan) 1 mg Q4H PRN PO 11/23/17 22:15 (Ativan Inj) 1 mg Q4H PRN IV PUSH 11/23/17 22:15 (Ativan) 2 mg Q2H PRN PO 11/23/17 22:15 (Ativan Inj) 2 mg Q2H PRN IV PUSH 11/23/17 22:15 11/24/17 11:35 (Ativan Inj) 2 mg Q1H PRN IV PUSH 11/23/17 22:15 (Ativan Inj) 2 mg Q15M PRN IV PUSH 11/23/17 22:15 (Flu (Quadrivalent) Vaccine Inj) 0.5 ml ONCE ONCE IM 11/25/17 09:00 11/25/17 09:01 (Pneumovax-23 Inj) 25 mcg ONCE ONCE IM 11/25/17 09:00 11/25/17 09:01 A/P Assessment and Plan Assessment/plan: 1. Left femur fracture s/p trip and fall Hip x-ray significant for mildly comminuted intertrochanteric fracture with medial angulation of the left femur Morphine for pain with bowel regimen Nothing by mouth Orthopedic surgery consulted, appreciate assistance. Plan for open treatment internal fixation with trochanteric nail later today. Anticipate anticoagulation with 81 mg aspirin twice daily for 30 days postoperatively. PT eval/tx 2. Elevated CK Likely secondary to fall IV fluid hydration repeat CK pending 3. BPH/chronic back pain Continue home Flomax Pain management as above 4. Daily drinker On CIWA protocol - no signs of withdrawal. Continue to monitor. Continue on daily thiamine/folate acid/multivitamin FEN NPO NS at 100 cc/hour Electrolytes: Monitor and replete prn Holding pharmacologic anticoagulation in anticipation of operative intervention Discharge Planning Pending surgical intervention, postoperative course and orthopedic clearance Alma Rosa Dennis Nov 24, 2017 13:12
--- NOTE | 2017-11-24 14:22 | PD.OP ---
cc: Twin Richardson MD Operative Report Date of Surgery: Nov 24, 2017 Preoperative Diagnosis: Left peritrochanteric hip fracture Postoperative Diagnosis: Same Procedure: Open treatment internal fixation left hip fracture with trochanteric nail Anesthesia: Gen. Surgeon: Twin Richardson Laborer [place](s): Staff Operation and Findings: EBL: 100 cc INDICATION: This patient is a 62-year-old Laura male with pain in the left hip after a fall 2 days ago. He presented yesterday to the emergency room and x-ray showed evidence of an impacted peritrochanteric hip fracture. He presents for surgical treatment. PROCEDURE: The patient was brought to the operating room and anesthetized in the supine position. He was placed on the fracture table with the left leg held extended. The opposite leg was in the well leg contreras. The hip fracture was reduced anatomically. The hip and leg was scrubbed with alcohol followed by Hibiclens followed by ChloraPrep. A timeout was done and antibiotics were given within 1 hour time window. A longitudinal incision was made over the lateral aspect of the proximal femur. Dissection continued down to the top of the greater trochanter. A cannulated awl was placed down through the top of the greater trochanter followed by placement of the guidepin along the shaft of the femur. This was reamed distally to 1 mm greater than the bhakti size and proximally to 17 mm. A separate incision was made laterally followed by placement of guidepin to the proper position of the femoral head. This is reamed and tapped in the proper length was placed up into the proper location. A single transverse screw was placed distally through the bhakti. A Rotating screw was positioned in proper position Intraoperative x-rays were obtained. Alignment was satisfactory. No complication was noted. The wound was irrigated copiously. Hemostasis was controlled. The fascia was closed with interrupted Vicryl suture, subcutaneous tissue 2-0 Vicryl suture, skin with running intradermal 3-0 Vicryl followed by Steri-Strips and benzoin. A sterile dressing was applied The patient was awakened and taken to the recovery room in satisfactory condition. FINDINGS: There was evidence of an impacted femoral neck fracture. We reduced the fracture near anatomically. There was no complication Twin Richardson MD Nov 24, 2017 14:22
[2017-11-24] MEDS ORDERED: ECASA81 PO (14:23)
[2017-11-24] MEDS ORDERED: OXYC1TAB63 PO (14:23)
[2017-11-24] MEDS: LACTATED RINGER'S 1000 ML INJ 1,000 ML IV SCH (14:42)
[2017-11-24] MEDS ORDERED: ONDANSETRON HCL 4 MG/2 ML VIAL IVP PRN (14:45)
[2017-11-24] MEDS ORDERED: ALUMINUM/MAGNESIUM/SIMETH 30 ML CUP PO PRN (14:45)
[2017-11-24] MEDS ORDERED: oxyCODONE/ACETAMINOPHEN 5 MG/325 MG TAB PO PRN (15:00)
[2017-11-24] MEDS ORDERED: ASPIRIN EC 81 MG TABEC PO ONE (15:00)
[2017-11-24] MEDS ORDERED: Post-op Orders (for Pharmacy) XX ONE (15:00)
[2017-11-24] MEDS ORDERED: MISCELLANEOUS NURSING INFORMATION XX PRN (15:00)
[2017-11-24] MEDS ORDERED: MORPHINE SULFATE 8 MG/ML INJ IM PRN (15:00)
[2017-11-24 15:31] VITALS: BP 126/73; PULSE 61; RESP 18; TEMP 96.8; O2SAT 96
--- NOTE | 2017-11-24 15:56 | RADRPT ---
EXAM DATE/TIME: 11/24/2017 12:58 [facility] COMPARISON: No previous studies available for comparison. INDICATIONS : Post-op ORIF left hip fracture. MEDICAL HISTORY : None. SURGICAL HISTORY : None. ENCOUNTER: Subsequent ACUITY: 2 days PAIN SCORE: Non-responsive. LOCATION: Left hip. FINDINGS: 4 spot images of the left hip demonstrate interval compression screw and intramedullary bhakti fixation of left femoral intertrochanteric fracture. Hardware is well positioned and intact. There is near-deidra tomic alignment. No additional fractures are identified. CONCLUSION: 1. Status post left hip ORIF, as above. Scar Grover MD on November 24, 2017 at 15:51 Board Certified Radiologist. This report was verified electronically.
[2017-11-24] MEDS ORDERED: DO NOT ADM ANY ANTICOAGULANT DRUGS PRN (16:00)
[2017-11-24] MEDS: oxyCODONE/ACETAMINOPHEN 5 MG/325 MG TAB PO PRN ×2 (16:31→20:44)
[2017-11-24] MEDS: ASPIRIN EC 81 MG TABEC PO SCH (20:37)
[2017-11-24 20:41] VITALS: BP 114/65; PULSE 76; RESP 18; TEMP 98.1; O2SAT 97
[2017-11-24] MEDS: SENNOSIDES 8.6 MG TAB PO SCH (20:43)
[2017-11-24] MEDS: DOCUSATE SODIUM 50 MG/SENNA 8.6 MG TAB PO SCH (20:43)
[2017-11-24] MEDS: MAGNESIUM HYDROXIDE SUSP 30 ML CUP PO SCH (20:43)
[2017-11-24] MEDS ORDERED: DOCUSATE SODIUM 50 MG/SENNA 8.6 MG TAB PO SCH (21:00)
[2017-11-24] MEDS ORDERED: TEMAZEPAM 15 MG CAP PO PRN (21:00)
[2017-11-24 23:45] VITALS: BP 115/57; PULSE 79; RESP 17; TEMP 96.8; O2SAT 96
[2017-11-25] MEDS: oxyCODONE/ACETAMINOPHEN 5 MG/325 MG TAB PO PRN ×6 (01:05→22:26)
[2017-11-25] MEDS: SODIUM CHLOR 0.9% 1000 ML INJ 1,000 ML IV SCH ×3 (03:00→23:00)
[2017-11-25 03:55] VITALS: BP 114/68; PULSE 65; RESP 17; TEMP 97.3; O2SAT 97
[2017-11-25] MEDS: LACTATED RINGER'S 1000 ML INJ 1,000 ML IV SCH ×2 (05:09→15:45)
[2017-11-25 07:36] LABS: AUTOMATED NEUTROPHIL # 3.8 TH/MM3 (1.8-7.7); BASOPHIL % 0.6 % (0.0-2.0); EOSINOPHIL % 0.2 % (0.0-4.0); HEMATOCRIT 41.2 % (39.0-51.0); HEMOGLOBIN 14.1 GM/DL (13.0-17.0); LYMPH % 12.9 % (9.0-44.0); LYMPHOCYTE # 0.7 TH/MM3 (1.0-4.8); MEAN CELL VOLUME 92.3 FL (80.0-100.0); MEAN CORPUSCULAR HEMOGLOBIN 31.6 PG (27.0-34.0); MEAN CORPUSCULAR HGB CONC 34.2 % (32.0-36.0); MEAN PLATELET VOLUME 7.6 FL (7.0-11.0); MONO % 11.4 % (0.0-8.0); MONOCYTE # 0.6 TH/MM3 (0-0.9); NEUT % 74.9 % (16.0-70.0); PLATELET COUNT 150 TH/MM3 (150-450); RED BLOOD COUNT 4.46 MIL/MM3 (4.50-5.90); RED CELL DISTRIBUTION WIDTH 13.7 % (11.6-17.2); WHITE BLOOD COUNT 5.1 TH/MM3 (4.0-11.0)
[2017-11-25] MEDS: ASPIRIN EC 81 MG TABEC PO SCH ×2 (07:52→19:36)
[2017-11-25] MEDS: MULTIVITAMINS/MINERALS THERAPEUTIC TAB PO SCH (07:52)
[2017-11-25] MEDS: FOLIC ACID 1 MG TAB PO SCH (07:52)
[2017-11-25] MEDS: DOCUSATE SODIUM 50 MG/SENNA 8.6 MG TAB PO SCH ×2 (07:52→20:21)
[2017-11-25] MEDS: THIAMINE HCL 100 MG TAB PO SCH (07:52)
[2017-11-25] MEDS: MAGNESIUM HYDROXIDE SUSP 30 ML CUP PO SCH ×2 (07:53→20:20)
[2017-11-25 08:00] VITALS: BP 116/69; PULSE 65; RESP 18; TEMP 96.9; O2SAT 99
[2017-11-25] MEDS: SODIUM CHLORIDE 0.9% FLUSH 10 ML FLUSH IV FLUSH SCH ×2 (08:01→20:21)
[2017-11-25] MEDS ORDERED: PNEUMOCOCCAL POLYVALENT INJ 25 MCG/0.5 ML SYR IM ONE (09:00)
[2017-11-25] MEDS ORDERED: INFLUENZA VIRUS VACCINE (QUADRIVALENT) 0.5 ML SYR IM ONE (09:00)
--- NOTE | 2017-11-25 09:01 | PD.ORT.PN ---
Subjective Subjective Remarks Looks fine. Mild to moderate spasm. History of chronic low back pain Objective Vitals Vital Signs Date Time Temp Pulse Resp B/P (MAP) Pulse Ox O2 Delivery O2 Flow Rate FiO2 11/25/17 03:55 97.3 65 17 114/68 (83) 97 11/24/17 23:45 96.8 79 17 115/57 (76) 96 11/24/17 20:41 98.1 76 18 114/65 (81) 97 11/24/17 15:31 96.8 61 18 126/73 (90) 96 11/24/17 15:00 98.6 81 13 125/68 (87) 99 Room Air 11/24/17 14:45 83 10 105/63 (77) 98 11/24/17 14:25 92 12 111/63 (79) 100 11/24/17 14:23 97.6 96 13 113/62 (79) 100 Simple Mask 6 I/O 11/24/17 11/24/17 11/24/17 11/25/17 11/25/17 11/25/17 07:00 15:00 23:00 07:00 15:00 23:00 Intake Total 900 ml 480 ml 480 ml Output Total 350 ml 230 ml 250 ml Balance -350 ml 670 ml 480 ml 230 ml Intake Oral 0 ml 480 ml 480 ml IV Total 900 ml Output Urine Total 350 ml 200 ml 250 ml Estimated Blood Loss 30 ml # Voids 1 # Bowel Movements 0 0 0 Result Diagram: 11/25/17 0710 11/24/17 0623 Objective Remarks Dressing with minimal drainage. Mild swelling. No calf tenderness. Motor examination normal Assessment & Plan Assessment and Plan Left peritrochanteric hip fracture, comminuted. Chronic low back pain on narcotics, Percocet 5 mg PLAN: Weightbearing as tolerated. Percocet 10 for pain control. He was on this medicine before surgery. One prescription will be written. Aspirin 81 mg twice a day for 30 days. No dressing change. Physical therapy and ambulation today. Discharge to home on Monday. Will need Walker and home health care Twin Richardson MD Nov 25, 2017 09:01
[2017-11-25] MEDS ORDERED: WALKER WHEELS/F1 MIS (09:52)
[2017-11-25 12:00] VITALS: BP 121/69; PULSE 61; RESP 18; TEMP 96.3; O2SAT 95
--- NOTE | 2017-11-25 14:45 | HHI.PR ---
Subjective Remarks 62-year-old male with a past medical history significant for chronic back pain and BPH presents to the emergency department status post a fall. The patient reports last night he slipped and fell on a tile floor and fell onto his left side. He was unable to stand at that time and his son helped him to bed. He reports that today he found he was unable to weight-bear or walking came to the emergency department for further evaluation. 316 Follow up on patient s/p fall with left femur fracture. Patient seen and examined. Patient complaining of back pain and spasms. States he has a disability from chronic back pain secondary to lumbar disc disease. Patient denies any fever or chills. Denies any chest pain or shortness of breath. Denies any nausea, vomiting or abdominal pain. 3 HAD SURGERY YESTERDAY HOPEFULLY TO SNF TOMORROW OR NEXT DAY NOT VERY MOBILE YET Objective Vitals Vital Signs Date Time Temp Pulse Resp B/P (MAP) Pulse Ox O2 Delivery O2 Flow Rate FiO2 11/25/17 12:00 96.3 61 18 121/69 (86) 95 11/25/17 10:31 18 11/25/17 08:00 96.9 65 18 116/69 (85) 99 11/25/17 03:55 97.3 65 17 114/68 (83) 97 11/24/17 23:45 96.8 79 17 115/57 (76) 96 11/24/17 20:41 98.1 76 18 114/65 (81) 97 11/24/17 15:31 96.8 61 18 126/73 (90) 96 11/24/17 15:00 98.6 81 13 125/68 (87) 99 Room Air 11/24/17 14:45 83 10 105/63 (77) 98 11/24/17 14:25 92 12 111/63 (79) 100 11/24/17 14:23 97.6 96 13 113/62 (79) 100 Simple Mask 6 I/O 11/24/17 11/24/17 11/24/17 11/25/17 11/25/17 11/25/17 07:00 15:00 23:00 07:00 15:00 23:00 Intake Total 900 ml 480 ml 480 ml Output Total 350 ml 230 ml 250 ml Balance -350 ml 670 ml 480 ml 230 ml Intake Oral 0 ml 480 ml 480 ml IV Total 900 ml Output Urine Total 350 ml 200 ml 250 ml Estimated Blood Loss 30 ml # Voids 1 # Bowel Movements 0 0 0 Result Diagram: 11/25/17 0710 11/24/17 0623 Other Results Laboratory Tests Test 11/23/17 18:20 11/24/17 06:23 11/25/17 07:10 White Blood Count 5.8 TH/MM3 6.8 TH/MM3 5.1 TH/MM3 Red Blood Count 4.98 MIL/MM3 4.68 MIL/MM3 4.46 MIL/MM3 Hemoglobin 15.6 GM/DL 14.9 GM/DL 14.1 GM/DL Hematocrit 45.9 % 43.5 % 41.2 % Mean Corpuscular Volume 92.3 FL 93.0 FL 92.3 FL Mean Corpuscular Hemoglobin 31.2 PG 31.8 PG 31.6 PG Mean Corpuscular Hemoglobin Concent 33.8 % 34.2 % 34.2 % Red Cell Distribution Width 13.6 % 13.5 % 13.7 % Platelet Count 169 TH/MM3 154 TH/MM3 150 TH/MM3 Mean Platelet Volume 7.8 FL 8.0 FL 7.6 FL Neutrophils (%) (Auto) 73.9 % 74.3 % 74.9 % Lymphocytes (%) (Auto) 14.7 % 14.3 % 12.9 % Monocytes (%) (Auto) 8.2 % 8.7 % 11.4 % Eosinophils (%) (Auto) 2.6 % 2.4 % 0.2 % Basophils (%) (Auto) 0.6 % 0.3 % 0.6 % Neutrophils # (Auto) 4.3 TH/MM3 5.0 TH/MM3 3.8 TH/MM3 Lymphocytes # (Auto) 0.9 TH/MM3 1.0 TH/MM3 0.7 TH/MM3 Monocytes # (Auto) 0.5 TH/MM3 0.6 TH/MM3 0.6 TH/MM3 Eosinophils # (Auto) 0.1 TH/MM3 0.2 TH/MM3 0.0 TH/MM3 Basophils # (Auto) 0.0 TH/MM3 0.0 TH/MM3 0.0 TH/MM3 CBC Comment DIFF FINAL DIFF FINAL DIFF FINAL Differential Comment Prothrombin Time 11.4 SEC Prothromb Time International Ratio 1.1 RATIO Activated Partial Thromboplast Time 29.3 SEC Urine Color YELLOW Urine Turbidity CLEAR Urine pH 5.5 Urine Specific [place] 1.018 Urine Protein TRACE mg/dL Urine Glucose (UA) NEG mg/dL Urine Ketones NEG mg/dL Urine Occult Blood NEG Urine Nitrite NEG Urine Bilirubin NEG Urine Urobilinogen 4.0 MG/DL Urine Leukocyte Esterase NEG Urine RBC 3 /hpf Urine WBC 2 /hpf Urine Squamous Epithelial Cells <1 /hpf Urine Amorphous Sediment RARE Urine Mucus FEW /lpf Urine Sperm RARE Microscopic Urinalysis Comment CULT NOT INDICATED Blood Urea Nitrogen 12 MG/DL 12 MG/DL Creatinine 0.91 MG/DL 0.87 MG/DL Random Glucose 90 MG/DL 85 MG/DL Total Protein 6.8 GM/DL Albumin 3.5 GM/DL Calcium Level 8.9 MG/DL 8.6 MG/DL Alkaline Phosphatase 72 U/L Aspartate Amino Transf (AST/SGOT) 40 U/L Alanine Aminotransferase (ALT/SGPT) 39 U/L Total Bilirubin 1.1 MG/DL Sodium Level 133 MEQ/L 136 MEQ/L Potassium Level 4.3 MEQ/L 4.2 MEQ/L Chloride Level 101 MEQ/L 101 MEQ/L Carbon Dioxide Level 25.1 MEQ/L 25.2 MEQ/L Anion Gap 7 MEQ/L 10 MEQ/L Estimat Glomerular Filtration Rate 102 ML/MIN 108 ML/MIN Total Creatine Kinase 602 U/L 391 U/L Creatine Kinase MB 10.5 NG/ML 3.7 NG/ML Creatine Kinase MB % 1.7 % 0.9 % Imaging Last Impressions Hip X-Ray 11/24/17 0000 Signed Impressions: Service Date/Time: Friday, November 24, 2017 12:58 - CONCLUSION: 1. Status post left hip ORIF, as above. Scar Grover MD Hip and Pelvis X-Ray 11/23/17 0000 Signed Impressions: Service Date/Time: November 17:47 - CONCLUSION: Mildly comminuted intertrochanteric fracture with medial angulation of the left femur. Artemio Champion MD Objective Remarks GENERAL: Awake alert oriented 3 talkative and cooperative SKIN: Warm and dry. HEAD: Atraumatic. Normocephalic. EYES: Pupils equal and round. No scleral icterus. No injection or drainage. Extractor muscles intact ENT: No nasal bleeding or discharge. Mucous membranes pink and moist. Tongue is midline NECK: Trachea midline. No JVD. Supple CARDIOVASCULAR: Regular rate and rhythm. S1-S2 no S3 or S4 RESPIRATORY: No accessory muscle use. Clear to auscultation. Breath sounds equal bilaterally. GASTROINTESTINAL: Abdomen soft, non-tender, nondistended. Hepatic and splenic margins not palpable. MUSCULOSKELETAL: Extremities without clubbing, cyanosis, or edema. No obvious deformities. NEUROLOGICAL: Awake and alert. No obvious cranial nerve deficits. Motor grossly within normal limits. 4 out of 5 muscle strength in the arms and legs. Normal speech. PSYCHIATRIC: Appropriate mood and affect; insight and judgment normal. Procedures Operative Report Date of Surgery: Nov 24, 2017 Preoperative Diagnosis: Left peritrochanteric hip fracture Postoperative Diagnosis: Same Procedure: Open treatment internal fixation left hip fracture with trochanteric nail Anesthesia: Gen. Surgeon: Twin Richardson Hourly Sign Language Interpreter(s): Staff Operation and Findings: EBL: 100 cc INDICATION: This patient is a 62-year-old [place] male with pain in the left hip after a fall 2 days ago. He presented yesterday to the emergency room and x-ray showed evidence of an impacted peritrochanteric hip fracture. He presents for surgical treatment. PROCEDURE: The patient was brought to the operating room and anesthetized in the supine position. He was placed on the fracture table with the left leg held extended. The opposite leg was in the well leg contreras. The hip fracture was reduced anatomically. The hip and leg was scrubbed with alcohol followed by Hibiclens followed by ChloraPrep. A timeout was done and antibiotics were given within 1 hour time window. A longitudinal incision was made over the lateral aspect of the proximal femur. Dissection continued down to the top of the greater trochanter. A cannulated awl was placed down through the top of the greater trochanter followed by placement of the guidepin along the shaft of the femur. This was reamed distally to 1 mm greater than the bhakti size and proximally to 17 mm. A separate incision was made laterally followed by placement of guidepin to the proper position of the femoral head. This is reamed and tapped in the proper length was placed up into the proper location. A single transverse screw was placed distally through the bhakti. A Rotating screw was positioned in proper position Intraoperative x-rays were obtained. Alignment was satisfactory. No complication was noted. The wound was irrigated copiously. Hemostasis was controlled. The fascia was closed with interrupted Vicryl suture, subcutaneous tissue 2-0 Vicryl suture, skin with running intradermal 3-0 Vicryl followed by Steri-Strips and benzoin. A sterile dressing was applied The patient was awakened and taken to the recovery room in satisfactory condition. FINDINGS: There was evidence of an impacted femoral neck fracture. We reduced the fracture near anatomically. There was no complication Medications and IVs Current Medications Morphine Sulfate (Morphine Inj) 4 mg ONCE ONCE IM Last administered on 16:58; Start 11/23/17 at 17:00; Stop 11/23/17 at 17:01; Status DC Ondansetron HCl (Zofran Inj) 4 mg ONCE ONCE IM Last administered on 11/23/17 16:57; Start 11/23/17 at 17:00; Stop 11/23/17 at 17:01; Status DC Sodium Chloride (NS Flush) 2 ml UNSCH PRN IV FLUSH FLUSH AFTER USING IV ACCESS ; Start 11/23/17 at 18:15; Stop 11/23/17 at 21:01; Status DC Sodium Chloride 1,000 ml @ 999 mls/hr BOLUS ONCE IV Last administered on 11/23 18:42; Start 11/23/17 at 18:30; Stop 11/23/17 at 19:30; Status DC Morphine Sulfate (Morphine Inj) 2 mg ONCE ONCE IV PUSH Last administered on 18:42; Start 11/23/17 at 18:30; Stop 11/23/17 at 18:31; Status DC Acetaminophen 100 ml @ 400 mls/hr ONCE ONCE IV Last administered on 18:42; Start 11/23/17 at 18:30; Stop 11/23/17 at 18:44; Status DC Sodium Chloride 1,000 ml @ 100 mls/hr Q10H IV Last administered on 11/23/17at 22:06; Start 11/23/17 at 21:00 Sodium Chloride (NS Flush) 2 ml UNSCH PRN IV FLUSH FLUSH AFTER USING IV ACCESS ; Start 11/23/17 at 21:00 Sodium Chloride (NS Flush) 2 ml BID IV FLUSH Last administered on 11/24/17at 09: 00; Start 11/23/17 at 21:00 Acetaminophen (Tylenol) 650 mg Q4H PRN PO TEMP > 100.4; Start 11/23/17 at 21:00 Ondansetron HCl (Zofran Inj) 4 mg Q6H PRN IVP NAUSEA OR VOMITING; Start at 21:00; Stop 11/25/17 at 09:51; Status DC Naloxone HCl (Narcan Inj) 0.4 mg UNSCH PRN IV PUSH SEE LABEL COMMENTS; Start at 21:00 Senna/Docusate Sodium (Bhumi-Colace) 1 tab BID PO Last administered on at 07:52; Start 11/23/17 at 21:00 Magnesium Hydroxide (Milk Of Magnesia Liq) 30 ml Q12H PRN PO Mild constipation ; Start 11/23/17 at 21:00 Sennosides (Senokot) 17.2 mg Q12H PRN PO Moderate constipation; Start 11/23/17 at 21:00 Bisacodyl (Dulcolax Supp) 10 mg DAILY PRN RECTAL SEVERE CONSITIPATION; Start at 21:00 Lactulose (Lactulose Liq) 30 ml DAILY PRN PO SEVERE CONSITIPATION; Start at 21:00 Morphine Sulfate (Morphine Inj) 4 mg Q3H PRN IV PUSH pain 6-10 Last administered on 11/24/17at 11:36; Start 11/23/17 at 21:00 Tamsulosin HCl (Flomax) 0.4 mg ONCE ONCE PO Last administered on 11/23/17at 23: 29; Start 11/23/17 at 22:00; Stop 11/23/17 at 22:13; Status DC Folic Acid (Folate) 1 mg DAILY PO Last administered on 11/25/17at 07:52; Start 11/24/17 at 09:00; Stop 11/29/17 at 08:59 Thiamine HCl (Vitamin B1) 100 mg DAILY PO Last administered on 11/25/17at 07:52 ; Start 11/24/17 at 09:00 Multivitamins/ Minerals Therapeutic (Theragran M Tab) 1 tab DAILY PO Last administered on 11/25/17at 07:52; Start 11/24/17 at 09:00; Stop 11/29/17 at 08:59 Flumazenil (Romazicon Inj) 0.2 mg Q1M PRN IV PUSH SEE LABEL COMMENTS; Start at 22:15 Lorazepam (Ativan) 1 mg Q4H PRN PO CIWA 8 - 10; Start 11/23/17 at 22:15 Lorazepam (Ativan Inj) 1 mg Q4H PRN IV PUSH CIWA 8 - 10; Start 11/23/17 at 22: 15 Lorazepam (Ativan) 2 mg Q2H PRN PO CIWA 11-14; Start 11/23/17 at 22:15 Lorazepam (Ativan Inj) 2 mg Q2H PRN IV PUSH CIWA 11-14 Last administered on at 11:35; Start 11/23/17 at 22:15 Lorazepam (Ativan Inj) 2 mg Q1H PRN IV PUSH CIWA 15-20; Start 11/23/17 at 22:15 Lorazepam (Ativan Inj) 2 mg Q15M PRN IV PUSH CIWA > 20; Start 11/23/17 at 22:15 Gentamicin Sulfate (Gentamicin Inj) 80 mg STK-MED ONCE .ROUTE ; Start 11/24/17 at 10:22; Stop 11/24/17 at 10:23; Status DC Acetaminophen 100 ml @ As Directed STK-MED ONCE IV ; Start 11/24/17 at 11:43; Stop 11/24/17 at 11:44; Status DC Fentanyl Citrate (fentaNYL INJ) 250 mcg STK-MED ONCE .ROUTE ; Start 11/24/17 at 11:43; Stop 11/24/17 at 11:44; Status DC Midazolam HCl (Versed Inj) 2 mg STK-MED ONCE .ROUTE ; Start 11/24/17 at 11:43; Stop 11/24/17 at 11:44; Status DC Famotidine (Pepcid Inj) 20 mg STK-MED ONCE .ROUTE ; Start 11/24/17 at 11:43; Stop 11/24/17 at 11:44; Status DC Influenza Virus Vaccine (Flu (Quadrivalent) Vaccine Inj) 0.5 ml ONCE ONCE IM Last administered on 11/25/17at 07:50; Start 11/25/17 at 09:00; Stop 11/25/17 at 09:01; Status DC Pneumococcal Polyvalent Vaccine (Pneumovax-23 Inj) 25 mcg ONCE ONCE IM Last administered on 11/25/17at 07:51; Start 11/25/17 at 09:00; Stop 11/25/17 at 09:01 ; Status DC Gentamicin Sulfate (Gentamicin Inj) 160 mg STK-MED ONCE .ROUTE ; Start 11/24/17 at 12:09; Stop 11/24/17 at 12:10; Status DC Senna/Docusate Sodium (Bhumi-Colace) 1 tab BID PO ; Start 11/24/17 at 21:00; Status UNV Lactated Ringer's 1,000 ml @ 80 mls/hr [id number] IV Last administered on at 05:09; Start 11/24/17 at 14:45 Cefazolin Sodium 1000 mg/Sodium Chloride 100 ml @ 200 mls/hr Q6H IV Last administered on 11/25/17at 06:27; Start 11/24/17 at 19:00; Stop 11/25/17 at 07:29 ; Status DC Miscellaneous Information (Post-op Orders (for Pharmacy)) STAT ONCE XX ; Start 11/24/17 at 15:00; Stop 11/24/17 at 15:01; Status DC Miscellaneous Information UNSCH PRN XX SEE LABEL COMMENTS; Start 11/24/17 at 15:00 Miscellaneous Medication ([facility]) ONCE ONCE XX ; Start at 15:00; Stop 11/25/17 at 15:01 Morphine Sulfate (Morphine Inj) 5 mg Q3H PRN IM Breakthrough pain; Start at 15:00 Oxycodone/ Acetaminophen (Percocet 5-325 Mg) 1 tab Q4H PRN PO PAIN LESS THAN 5 ON SCALE; Start 11/24/17 at 15:00 Oxycodone/ Acetaminophen (Percocet 5-325 Mg) 2 tab Q4H PRN PO PAIN SCALE 5 TO 10 Last administered on 11/25/17at 13:59; Start 11/24/17 at 15:00 Ondansetron HCl (Zofran Inj) 4 mg Q6H PRN IVP NAUSEA OR VOMITING; Start at 14:45 Al Hydrox/Mg Hydrox/Simethicone (Mag-Al Plus Susp Liq) 30 ml Q6H PRN PO INDIGESTION; Start 11/24/17 at 14:45 Temazepam (Restoril) 15 mg HS PRN PO SLEEP; Start 11/24/17 at 21:00 Magnesium Hydroxide (Milk Of Priscilla Howard) 30 ml BID PO Last administered on at 07:53; Start 11/24/17 at 21:00 Sennosides (Senokot) 17.2 mg HS PO Last administered on 11/24/17at 20:43; Start 11/24/17 at 21:00 Aspirin (Ecotrin Ec) 81 mg ONCE ONCE PO Last administered on 11/24/17at 15:00; Start 11/24/17 at 15:00; Stop 11/24/17 at 15:01; Status DC Aspirin (Ecotrin Ec) 81 mg BID PO Last administered on 11/25/17at 07:52; Start 11/24/17 at 21:00 Miscellaneous Information ALL NURSING DEPARTME... UNSCH PRN .XX SEE LABEL COMMENTS; Start 11/24/17 at 16:00; Stop 11/25/17 at 15:59 A/P Assessment and Plan 1. Left femur fracture s/p trip and fall Hip x-ray significant for mildly comminuted intertrochanteric fracture with medial angulation of the left femur Morphine for pain with bowel regimen Nothing by mouth Orthopedic surgery consulted, appreciate assistance. Status post surgery on NovemberNovember 12, 1959 open treatment internal fixation with trochanteric nail. Anticipate anticoagulation with 81 mg aspirin twice daily for 30 days postoperatively. PT eval/tx SP SURGERY ON 11-24 BY ORTHO 2. Elevated CK Likely secondary to fall IV fluid hydration repeat CK pending 3. BPH/chronic back pain Continue home Flomax Pain management as above 4. Daily drinker On CIWA protocol - no signs of withdrawal. Continue to monitor. Continue on daily thiamine/folate acid/multivitamin FEN NS at 100 cc/hour Electrolytes: Monitor and replete prn Discharge Planning Case management for probable SNF at this Anival Terry DO Nov 25, 2017 14:45
[2017-11-25] MEDS ORDERED: MISCELLANEOUS PHARMACY INFORMATION XX ONE (15:00)
[2017-11-25 16:00] VITALS: BP 115/69; PULSE 62; RESP 18; TEMP 96; O2SAT 98
[2017-11-25] MEDS: SENNOSIDES 8.6 MG TAB PO SCH (20:21)
[2017-11-25 20:50] VITALS: BP 116/65; PULSE 58; RESP 16; TEMP 98.2; O2SAT 97
[2017-11-26 00:45] VITALS: BP 126/72; PULSE 73; RESP 17; TEMP 97.4; O2SAT 99
[2017-11-26] MEDS: oxyCODONE/ACETAMINOPHEN 5 MG/325 MG TAB PO PRN ×5 (03:29→20:52)
[2017-11-26] MEDS: LACTATED RINGER'S 1000 ML INJ 1,000 ML IV SCH ×2 (04:15→16:45)
[2017-11-26 08:00] VITALS: BP 109/75; PULSE 63; RESP 18; TEMP 96.9; O2SAT 97
[2017-11-26] MEDS: MULTIVITAMINS/MINERALS THERAPEUTIC TAB PO SCH (08:24)
[2017-11-26] MEDS: ASPIRIN EC 81 MG TABEC PO SCH ×2 (08:24→20:52)
[2017-11-26] MEDS: FOLIC ACID 1 MG TAB PO SCH (08:24)
[2017-11-26] MEDS: DOCUSATE SODIUM 50 MG/SENNA 8.6 MG TAB PO SCH ×2 (08:25→20:52)
[2017-11-26] MEDS: THIAMINE HCL 100 MG TAB PO SCH (08:25)
[2017-11-26] MEDS: SODIUM CHLORIDE 0.9% FLUSH 10 ML FLUSH IV FLUSH SCH ×2 (08:30→20:55)
[2017-11-26] MEDS: MAGNESIUM HYDROXIDE SUSP 30 ML CUP PO SCH ×2 (08:30→20:55)
--- NOTE | 2017-11-26 08:31 | PD.ORT.PN ---
Subjective Subjective Remarks Looks fine. Mild to moderate spasm. History of chronic low back pain. Needs more assistance. One not be able to go home. Anticipate [facility] Objective Vitals Vital Signs Date Time Temp Pulse Resp B/P (MAP) Pulse Ox O2 Delivery O2 Flow Rate FiO2 11/26/17 00:45 97.4 73 17 126/72 (90) 99 11/25/17 20:50 98.2 58 16 116/65 (82) 97 11/25/17 16:00 96.0 62 18 115/69 (84) 98 11/25/17 14:59 18 11/25/17 12:00 96.3 61 18 121/69 (86) 95 I/O 11/25/17 11/25/17 11/25/17 11/26/17 11/26/17 11/26/17 07:00 15:00 23:00 07:00 15:00 23:00 Intake Total 480 ml 720 ml 360 ml Output Total 250 ml 300 ml 600 ml Balance 230 ml 420 ml -240 ml Intake Oral 480 ml 720 ml 360 ml Output Urine Total 250 ml 300 ml 600 ml # Bowel Movements 0 0 0 Result Diagram: 11/25/17 0710 11/24/17 0623 Objective Remarks Dressing with minimal drainage. Mild swelling. No calf tenderness. Motor examination normal Assessment & Plan Assessment and Plan Left peritrochanteric hip fracture, comminuted. Chronic low back pain on narcotics, Percocet 5 mg SURGERY: ORIF left hip, trochanteric nail: POD #2. PLAN: Weightbearing as tolerated. Percocet 10 for pain control. He was on this medicine before surgery. One prescription will be written. Aspirin 81 mg twice a day for 30 days. No dressing change. Physical therapy and ambulation today. Discharge to [facility] facility, today or when medically clear [place]. Follow-up in 2 weeks Twin Richardson MD Nov 26, 2017 08:31
[2017-11-26] MEDS: SODIUM CHLOR 0.9% 1000 ML INJ 1,000 ML IV SCH ×2 (09:00→19:00)
--- NOTE | 2017-11-26 10:29 | HHI.PR ---
Subjective Remarks 62-year-old male with a past medical history significant for chronic back pain and BPH presents to the emergency department status post a fall. The patient reports last night he slipped and fell on a tile floor and fell onto his left side. He was unable to stand at that time and his son helped him to bed. He reports that today he found he was unable to weight-bear or walking came to the emergency department for further evaluation. 3-16 Follow up on patient s/p fall with left femur fracture. Patient seen and examined. Patient complaining of back pain and spasms. States he has a disability from chronic back pain secondary to lumbar disc disease. Patient denies any fever or chills. Denies any chest pain or shortness of breath. Denies any nausea, vomiting or abdominal pain. 3-17 HAD SURGERY YESTERDAY HOPEFULLY TO SNF TOMORROW OR NEXT DAY NOT VERY MOBILE YET 3-18 CLEARED BY ORTHO CAN GO TO SNF TODAY IF BED IS AVAILABLE DW CM AND RN AND PT OK FOR SNF 3008 SIGNED Objective Vitals Vital Signs Date Time Temp Pulse Resp B/P (MAP) Pulse Ox O2 Delivery O2 Flow Rate FiO2 11/26/17 08:00 96.9 63 18 109/75 (86) 97 11/26/17 00:45 97.4 73 17 126/72 (90) 99 11/25/17 20:50 98.2 58 16 116/65 (82) 97 11/25/17 16:00 96.0 62 18 115/69 (84) 98 11/25/17 14:59 18 11/25/17 12:00 96.3 61 18 121/69 (86) 95 I/O 11/25/17 11/25/17 11/25/17 11/26/17 11/26/17 11/26/17 07:00 15:00 23:00 07:00 15:00 23:00 Intake Total 480 ml 720 ml 360 ml Output Total 250 ml 300 ml 600 ml Balance 230 ml 420 ml -240 ml Intake Oral 480 ml 720 ml 360 ml Output Urine Total 250 ml 300 ml 600 ml # Bowel Movements 0 0 0 Result Diagram: 11/25/17 0710 11/24/17 0623 Other Results Laboratory Tests Test 11/23/17 18:20 11/24/17 06:23 11/25/17 07:10 White Blood Count 5.8 TH/MM3 6.8 TH/MM3 5.1 TH/MM3 Red Blood Count 4.98 MIL/MM3 4.68 MIL/MM3 4.46 MIL/MM3 Hemoglobin 15.6 GM/DL 14.9 GM/DL 14.1 GM/DL Hematocrit 45.9 % 43.5 % 41.2 % Mean Corpuscular Volume 92.3 FL 93.0 FL 92.3 FL Mean Corpuscular Hemoglobin 31.2 PG 31.8 PG 31.6 PG Mean Corpuscular Hemoglobin Concent 33.8 % 34.2 % 34.2 % Red Cell Distribution Width 13.6 % 13.5 % 13.7 % Platelet Count 169 TH/MM3 154 TH/MM3 150 TH/MM3 Mean Platelet Volume 7.8 FL 8.0 FL 7.6 FL Neutrophils (%) (Auto) 73.9 % 74.3 % 74.9 % Lymphocytes (%) (Auto) 14.7 % 14.3 % 12.9 % Monocytes (%) (Auto) 8.2 % 8.7 % 11.4 % Eosinophils (%) (Auto) 2.6 % 2.4 % 0.2 % Basophils (%) (Auto) 0.6 % 0.3 % 0.6 % Neutrophils # (Auto) 4.3 TH/MM3 5.0 TH/MM3 3.8 TH/MM3 Lymphocytes # (Auto) 0.9 TH/MM3 1.0 TH/MM3 0.7 TH/MM3 Monocytes # (Auto) 0.5 TH/MM3 0.6 TH/MM3 0.6 TH/MM3 Eosinophils # (Auto) 0.1 TH/MM3 0.2 TH/MM3 0.0 TH/MM3 Basophils # (Auto) 0.0 TH/MM3 0.0 TH/MM3 0.0 TH/MM3 CBC Comment DIFF FINAL DIFF FINAL DIFF FINAL Differential Comment Prothrombin Time 11.4 SEC Prothromb Time International Ratio 1.1 RATIO Activated Partial Thromboplast Time 29.3 SEC Urine Color YELLOW Urine Turbidity CLEAR Urine pH 5.5 Urine Specific [place] 1.018 Urine Protein TRACE mg/dL Urine Glucose (UA) NEG mg/dL Urine Ketones NEG mg/dL Urine Occult Blood NEG Urine Nitrite NEG Urine Bilirubin NEG Urine Urobilinogen 4.0 MG/DL Urine Leukocyte Esterase NEG Urine RBC 3 /hpf Urine WBC 2 /hpf Urine Squamous Epithelial Cells <1 /hpf Urine Amorphous Sediment RARE Urine Mucus FEW /lpf Urine Sperm RARE Microscopic Urinalysis Comment CULT NOT INDICATED Blood Urea Nitrogen 12 MG/DL 12 MG/DL Creatinine 0.91 MG/DL 0.87 MG/DL Random Glucose 90 MG/DL 85 MG/DL Total Protein 6.8 GM/DL Albumin 3.5 GM/DL Calcium Level 8.9 MG/DL 8.6 MG/DL Alkaline Phosphatase 72 U/L Aspartate Amino Transf (AST/SGOT) 40 U/L Alanine Aminotransferase (ALT/SGPT) 39 U/L Total Bilirubin 1.1 MG/DL Sodium Level 133 MEQ/L 136 MEQ/L Potassium Level 4.3 MEQ/L 4.2 MEQ/L Chloride Level 101 MEQ/L 101 MEQ/L Carbon Dioxide Level 25.1 MEQ/L 25.2 MEQ/L Anion Gap 7 MEQ/L 10 MEQ/L Estimat Glomerular Filtration Rate 102 ML/MIN 108 ML/MIN Total Creatine Kinase 602 U/L 391 U/L Creatine Kinase MB 10.5 NG/ML 3.7 NG/ML Creatine Kinase MB % 1.7 % 0.9 % Imaging Last Impressions Hip X-Ray 11/24/17 0000 Signed Impressions: Service Date/Time: Friday, November 24, 2017 12:58 - CONCLUSION: 1. Status post left hip ORIF, as above. Scar Grover MD Hip and Pelvis X-Ray 11/23/17 0000 Signed Impressions: Service Date/Time: November 17:47 - CONCLUSION: Mildly comminuted intertrochanteric fracture with medial angulation of the left femur. Artemio Champion MD Objective Remarks GENERAL: Awake alert oriented 3 talkative and cooperative SKIN: Warm and dry. HEAD: Atraumatic. Normocephalic. EYES: Pupils equal and round. No scleral icterus. No injection or drainage. Extractor muscles intact ENT: No nasal bleeding or discharge. Mucous membranes pink and moist. Tongue is midline NECK: Trachea midline. No JVD. Supple CARDIOVASCULAR: Regular rate and rhythm. S1-S2 no S3 or S4 RESPIRATORY: No accessory muscle use. Clear to auscultation. Breath sounds equal bilaterally. GASTROINTESTINAL: Abdomen soft, non-tender, nondistended. Hepatic and splenic margins not palpable. MUSCULOSKELETAL: Extremities without clubbing, cyanosis, or edema. No obvious deformities. NEUROLOGICAL: Awake and alert. No obvious cranial nerve deficits. Motor grossly within normal limits. 4 out of 5 muscle strength in the arms and legs. Normal speech. PSYCHIATRIC: Appropriate mood and affect; insight and judgment normal. Procedures Operative Report Date of Surgery: Nov 24, 2017 Preoperative Diagnosis: Left peritrochanteric hip fracture Postoperative Diagnosis: Same Procedure: Open treatment internal fixation left hip fracture with trochanteric nail Anesthesia: Gen. Surgeon: Twin Richardson Retail Security Professional(s): Staff Operation and Findings: EBL: 100 cc INDICATION: This patient is a 62-year-old Laura male with pain in the left hip after a fall 2 days ago. He presented yesterday to the emergency room and x-ray showed evidence of an impacted peritrochanteric hip fracture. He presents for surgical treatment. PROCEDURE: The patient was brought to the operating room and anesthetized in the supine position. He was placed on the fracture table with the left leg held extended. The opposite leg was in the well leg contreras. The hip fracture was reduced anatomically. The hip and leg was scrubbed with alcohol followed by Hibiclens followed by ChloraPrep. A timeout was done and antibiotics were given within 1 hour time window. A longitudinal incision was made over the lateral aspect of the proximal femur. Dissection continued down to the top of the greater trochanter. A cannulated awl was placed down through the top of the greater trochanter followed by placement of the guidepin along the shaft of the femur. This was reamed distally to 1 mm greater than the bhakti size and proximally to 17 mm. A separate incision was made laterally followed by placement of guidepin to the proper position of the femoral head. This is reamed and tapped in the proper length was placed up into the proper location. A single transverse screw was placed distally through the bhakti. A Rotating screw was positioned in proper position Intraoperative x-rays were obtained. Alignment was satisfactory. No complication was noted. The wound was irrigated copiously. Hemostasis was controlled. The fascia was closed with interrupted Vicryl suture, subcutaneous tissue 2-0 Vicryl suture, skin with running intradermal 3-0 Vicryl followed by Steri-Strips and benzoin. A sterile dressing was applied The patient was awakened and taken to the recovery room in satisfactory condition. FINDINGS: There was evidence of an impacted femoral neck fracture. We reduced the fracture near anatomically. There was no complication Medications and IVs Current Medications Morphine Sulfate (Morphine Inj) 4 mg ONCE ONCE IM Last administered on 16:58; Start 11/23/17 at 17:00; Stop 11/23/17 at 17:01; Status DC Ondansetron HCl (Zofran Inj) 4 mg ONCE ONCE IM Last administered on 11/23/17at 16:57; Start 11/23/17 at 17:00; Stop 11/23/17 at 17:01; Status DC Sodium Chloride (NS Flush) 2 ml UNSCH PRN IV FLUSH FLUSH AFTER USING IV ACCESS ; Start 11/23/17 at 18:15; Stop 11/23/17 at 21:01; Status DC Sodium Chloride 1,000 ml @ 999 mls/hr BOLUS ONCE IV Last administered on 11/23at 18:42; Start 11/23/17 at 18:30; Stop 11/23/17 at 19:30; Status DC Morphine Sulfate (Morphine Inj) 2 mg ONCE ONCE IV PUSH Last administered on at 18:42; Start 11/23/17 at 18:30; Stop 11/23/17 at 18:31; Status DC Acetaminophen 100 ml @ 400 mls/hr ONCE ONCE IV Last administered on at 18:42; Start 11/23/17 at 18:30; Stop 11/23/17 at 18:44; Status DC Sodium Chloride 1,000 ml @ 100 mls/hr Q10H IV Last administered on 11/23/17at 22:06; Start 11/23/17 at 21:00 Sodium Chloride (NS Flush) 2 ml UNSCH PRN IV FLUSH FLUSH AFTER USING IV ACCESS ; Start 11/23/17 at 21:00 Sodium Chloride (NS Flush) 2 ml BID IV FLUSH Last administered on 11/26/17at 08: 30; Start 11/23/17 at 21:00 Acetaminophen (Tylenol) 650 mg Q4H PRN PO TEMP > 100.4; Start 11/23/17 at 21:00 Ondansetron HCl (Zofran Inj) 4 mg Q6H PRN IVP NAUSEA OR VOMITING; Start at 21:00; Stop 11/25/17 at 09:51; Status DC Naloxone HCl (Narcan Inj) 0.4 mg UNSCH PRN IV PUSH SEE LABEL COMMENTS; Start at 21:00 Senna/Docusate Sodium (Bhumi-Colace) 1 tab BID PO Last administered on at 08:25; Start 11/23/17 at 21:00 Magnesium Hydroxide (Milk Of Magnesia Liq) 30 ml Q12H PRN PO Mild constipation ; Start 11/23/17 at 21:00 Sennosides (Senokot) 17.2 mg Q12H PRN PO Moderate constipation; Start 11/23/17 at 21:00 Bisacodyl (Dulcolax Supp) 10 mg DAILY PRN RECTAL SEVERE CONSITIPATION; Start at 21:00 Lactulose (Lactulose Liq) 30 ml DAILY PRN PO SEVERE CONSITIPATION; Start at 21:00 Morphine Sulfate (Morphine Inj) 4 mg Q3H PRN IV PUSH pain 6-10 Last administered on 11/24/17at 11:36; Start 11/23/17 at 21:00 Tamsulosin HCl (Flomax) 0.4 mg ONCE ONCE PO Last administered on 11/23/17at 23: 29; Start 11/23/17 at 22:00; Stop 11/23/17 at 22:13; Status DC Folic Acid (Folate) 1 mg DAILY PO Last administered on 11/26/17at 08:24; Start 11/24/17 at 09:00; Stop 11/29/17 at 08:59 Thiamine HCl (Vitamin B1) 100 mg DAILY PO Last administered on 11/26/17at 08:25 ; Start 11/24/17 at 09:00 Multivitamins/ Minerals Therapeutic (Theragran M Tab) 1 tab DAILY PO Last administered on 11/26/17at 08:24; Start 11/24/17 at 09:00; Stop 11/29/17 at 08:59 Flumazenil (Romazicon Inj) 0.2 mg Q1M PRN IV PUSH SEE LABEL COMMENTS; Start at 22:15 Lorazepam (Ativan) 1 mg Q4H PRN PO CIWA 8 - 10; Start 11/23/17 at 22:15 Lorazepam (Ativan Inj) 1 mg Q4H PRN IV PUSH CIWA 8 - 10; Start 11/23/17 at 22: 15 Lorazepam (Ativan) 2 mg Q2H PRN PO CIWA 11-14; Start 11/23/17 at 22:15 Lorazepam (Ativan Inj) 2 mg Q2H PRN IV PUSH CIWA 11-14 Last administered on at 11:35; Start 11/23/17 at 22:15 Lorazepam (Ativan Inj) 2 mg Q1H PRN IV PUSH CIWA 15-20; Start 11/23/17 at 22:15 Lorazepam (Ativan Inj) 2 mg Q15M PRN IV PUSH CIWA > 20; Start 11/23/17 at 22:15 Gentamicin Sulfate (Gentamicin Inj) 80 mg STK-MED ONCE .ROUTE ; Start 11/24/17 at 10:22; Stop 11/24/17 at 10:23; Status DC Acetaminophen 100 ml @ As Directed STK-MED ONCE IV ; Start 11/24/17 at 11:43; Stop 11/24/17 at 11:44; Status DC Fentanyl Citrate (fentaNYL INJ) 250 mcg STK-MED ONCE .ROUTE ; Start 11/24/17 at 11:43; Stop 11/24/17 at 11:44; Status DC Midazolam HCl (Versed Inj) 2 mg STK-MED ONCE .ROUTE ; Start 11/24/17 at 11:43; Stop 11/24/17 at 11:44; Status DC Famotidine (Pepcid Inj) 20 mg STK-MED ONCE .ROUTE ; Start 11/24/17 at 11:43; Stop 11/24/17 at 11:44; Status DC Influenza Virus Vaccine (Flu (Quadrivalent) Vaccine Inj) 0.5 ml ONCE ONCE IM Last administered on 11/25/17at 07:50; Start 11/25/17 at 09:00; Stop 11/25/17 at 09:01; Status DC Pneumococcal Polyvalent Vaccine (Pneumovax-23 Inj) 25 mcg ONCE ONCE IM Last administered on 11/25/17at 07:51; Start 11/25/17 at 09:00; Stop 11/25/17 at 09:01 ; Status DC Gentamicin Sulfate (Gentamicin Inj) 160 mg STK-MED ONCE .ROUTE ; Start 11/24/17 at 12:09; Stop 11/24/17 at 12:10; Status DC Senna/Docusate Sodium (Bhumi-Colace) 1 tab BID PO ; Start 11/24/17 at 21:00; Status UNV Lactated Ringer's 1,000 ml @ 80 mls/hr [id number] IV Last administered on at 05:09; Start 11/24/17 at 14:45 Cefazolin Sodium 1000 mg/Sodium Chloride 100 ml @ 200 mls/hr Q6H IV Last administered on 11/25/17at 06:27; Start 11/24/17 at 19:00; Stop 11/25/17 at 07:29 ; Status DC Miscellaneous Information (Post-op Orders (for Pharmacy)) STAT ONCE XX ; Start 11/24/17 at 15:00; Stop 11/24/17 at 15:01; Status DC Miscellaneous Information UNSCH PRN XX SEE LABEL COMMENTS; Start 11/24/17 at 15:00 Miscellaneous Medication ([facility] [place] Pharmacy Information) ONCE ONCE XX ; Start at 15:00; Stop 11/25/17 at 15:01; Status DC Morphine Sulfate (Morphine Inj) 5 mg Q3H PRN IM Breakthrough pain; Start at 15:00 Oxycodone/ Acetaminophen (Percocet 5-325 Mg) 1 tab Q4H PRN PO PAIN LESS THAN 5 ON SCALE; Start 11/24/17 at 15:00 Oxycodone/ Acetaminophen (Percocet 5-325 Mg) 2 tab Q4H PRN PO PAIN SCALE 5 TO 10 Last administered on 11/26/17at 08:24; Start 11/24/17 at 15:00 Ondansetron HCl (Zofran Inj) 4 mg Q6H PRN IVP NAUSEA OR VOMITING; Start at 14:45 Al Hydrox/Mg Hydrox/Simethicone (Mag-Al Plus Susp Liq) 30 ml Q6H PRN PO INDIGESTION; Start 11/24/17 at 14:45 Temazepam (Restoril) 15 mg HS PRN PO SLEEP; Start 11/24/17 at 21:00 Magnesium Hydroxide (Milk Of Magnesia Liq) 30 ml BID PO Last administered on at 08:30; Start 11/24/17 at 21:00 Sennosides (Senokot) 17.2 mg HS PO Last administered on 11/24/17at 20:43; Start 11/24/17 at 21:00 Aspirin (Ecotrin Ec) 81 mg ONCE ONCE PO Last administered on 11/24/17at 15:00; Start 11/24/17 at 15:00; Stop 11/24/17 at 15:01; Status DC Aspirin (Ecotrin Ec) 81 mg BID PO Last administered on 11/26/17at 08:24; Start 11/24/17 at 21:00 Miscellaneous Information ALL NURSING DEPARTME... UNSCH PRN .XX SEE LABEL COMMENTS; Start 11/24/17 at 16:00; Stop 11/25/17 at 15:59; Status DC A/P Assessment and Plan 1. Left femur fracture s/p trip and fall Hip x-ray significant for mildly comminuted intertrochanteric fracture with medial angulation of the left femur Morphine for pain with bowel regimen Nothing by mouth Orthopedic surgery consulted, appreciate assistance. Status post surgery on NovemberNovember 12, 1959 open treatment internal fixation with trochanteric nail. Anticipate anticoagulation with 81 mg aspirin twice daily for 30 days postoperatively. PT eval/tx SP SURGERY ON 11-24 BY ORTHO 2. Elevated CK Likely secondary to fall IV fluid hydration repeat CK pending 3. BPH/chronic back pain Continue home Flomax Pain management as above 4. Daily drinker On CIWA protocol - no signs of withdrawal. Continue to monitor. Continue on daily thiamine/folate acid/multivitamin CONSTIPATION- MEDS FOR THIS CLEARED BY ORTHO DC TO SNF Discharge Planning Case management for probable SNF Anival Terry DO Nov 26, 2017 10:29
[2017-11-26] MEDS ORDERED: PERI PO (10:35)
[2017-11-26] MEDS ORDERED: MAGN30S PO (10:35)
[2017-11-26] MEDS ORDERED: THERM PO (10:35)
[2017-11-26] MEDS ORDERED: Lactulose Liq PO (10:35)
[2017-11-26] MEDS ORDERED: FOLI1TAB6 PO (10:35)
[2017-11-26] MEDS ORDERED: THIA100 PO (10:35)
[2017-11-26] MEDS ORDERED: SENN187 PO (10:35)
[2017-11-26] MEDS ORDERED: TAMS5CAP PO (10:40)
--- NOTE | 2017-11-26 10:42 | HHI.DS ---
Discharge Summary Admission Date Nov 23, 2017 at 20:02 Discharge Date: Nov 26, 2017 Admitting Diagnosis LEFT FEMUR FRACTURE (1) Femur fracture, left ICD Code: S72.92XA - Unspecified fracture of left femur, initial encounter for closed fracture Diagnosis: Principal Status: Acute (2) Closed left hip fracture ICD Code: S72.002A - Fracture of unspecified part of neck of left femur, initial encounter for closed fracture Diagnosis: Principal Status: Acute Procedures Operative Report Date of Surgery: Nov 24, 2017 Preoperative Diagnosis: Left peritrochanteric hip fracture Postoperative Diagnosis: Same Procedure: Open treatment internal fixation left hip fracture with trochanteric nail Anesthesia: Gen. Surgeon: Twin Richardson Wiring Technician(s): Staff Operation and Findings: EBL: 100 cc INDICATION: This patient is a 62-year-old Laura male with pain in the left hip after a fall 2 days ago. He presented yesterday to the emergency room and x-ray showed evidence of an impacted peritrochanteric hip fracture. He presents for surgical treatment. PROCEDURE: The patient was brought to the operating room and anesthetized in the supine position. He was placed on the fracture table with the left leg held extended. The opposite leg was in the well leg contreras. The hip fracture was reduced anatomically. The hip and leg was scrubbed with alcohol followed by Hibiclens followed by ChloraPrep. A timeout was done and antibiotics were given within 1 hour time window. A longitudinal incision was made over the lateral aspect of the proximal femur. Dissection continued down to the top of the greater trochanter. A cannulated awl was placed down through the top of the greater trochanter followed by placement of the guidepin along the shaft of the femur. This was reamed distally to 1 mm greater than the bhakti size and proximally to 17 mm. A separate incision was made laterally followed by placement of guidepin to the proper position of the femoral head. This is reamed and tapped in the proper length was placed up into the proper location. A single transverse screw was placed distally through the bhakti. A Rotating screw was positioned in proper position Intraoperative x-rays were obtained. Alignment was satisfactory. No complication was noted. The wound was irrigated copiously. Hemostasis was controlled. The fascia was closed with interrupted Vicryl suture, subcutaneous tissue 2-0 Vicryl suture, skin with running intradermal 3-0 Vicryl followed by Steri-Strips and benzoin. A sterile dressing was applied The patient was awakened and taken to the recovery room in satisfactory condition. FINDINGS: There was evidence of an impacted femoral neck fracture. We reduced the fracture near anatomically. There was no complication Brief History - From Admission 62-year-old male with a past medical history significant for chronic back pain and BPH presents to the emergency department status post a fall. The patient reports last night he slipped and fell on a tile floor and fell onto his left side. He was unable to stand at that time and his son helped him to bed. He reports that today he found he was unable to weight-bear or walking came to the emergency department for further evaluation. CBC/BMP: 11/25/17 0710 11/24/17 0623 Significant Findings Laboratory Tests Test 11/23/17 18:20 11/24/17 06:23 11/25/17 07:10 Neutrophils (%) (Auto) 73.9 % (16.0-70.0) 74.3 % (16.0-70.0) 74.9 % (16.0-70.0) Monocytes (%) (Auto) 8.2 % (0.0-8.0) 8.7 % (0.0-8.0) 11.4 % (0.0-8.0) Lymphocytes # (Auto) 0.9 TH/MM3 (1.0-4.8) 0.7 TH/MM3 (1.0-4.8) Urine Urobilinogen 4.0 MG/DL (LESS THAN Urine Mucus FEW /lpf (OCC) Urine Sperm RARE (NONE) Aspartate Amino Transf (AST/SGOT) 40 U/L (15-37) Total Bilirubin 1.1 MG/DL (0.2-1.0) Sodium Level 133 MEQ/L (136-145) Total Creatine Kinase 602 U/L (39-308) 391 U/L (39-308) Creatine Kinase MB 10.5 NG/ML (0.5-3.6) 3.7 NG/ML (0.5-3.6) Red Blood Count 4.46 MIL/MM3 (4.50-5.90) Imaging Last Impressions Hip X-Ray 11/24/17 0000 Signed Impressions: Service Date/Time: Friday, November 24, 2017 12:58 - CONCLUSION: 1. Status post left hip ORIF, as above. Scar Grover MD Hip and Pelvis X-Ray 11/23/17 0000 Signed Impressions: Service Date/Time: November 17:47 - CONCLUSION: Mildly comminuted intertrochanteric fracture with medial angulation of the left femur. Artemio Champion MD PE at Discharge GENERAL: Awake alert oriented 3 talkative and cooperative SKIN: Warm and dry. HEAD: Atraumatic. Normocephalic. EYES: Pupils equal and round. No scleral icterus. No injection or drainage. Extractor muscles intact ENT: No nasal bleeding or discharge. Mucous membranes pink and moist. Tongue is midline NECK: Trachea midline. No JVD. Supple CARDIOVASCULAR: Regular rate and rhythm. S1-S2 no S3 or S4 RESPIRATORY: No accessory muscle use. Clear to auscultation. Breath sounds equal bilaterally. GASTROINTESTINAL: Abdomen soft, non-tender, nondistended. Hepatic and splenic margins not palpable. MUSCULOSKELETAL: Extremities without clubbing, cyanosis, or edema. No obvious deformities. NEUROLOGICAL: Awake and alert. No obvious cranial nerve deficits. Motor grossly within normal limits. 4 out of 5 muscle strength in the arms and legs. Normal speech. PSYCHIATRIC: Appropriate mood and affect; insight and judgment normal. Hospital Course 62-year-old male with a past medical history significant for chronic back pain and BPH presents to the emergency department status post a fall. The patient reports last night he slipped and fell on a tile floor and fell onto his left side. He was unable to stand at that time and his son helped him to bed. He reports that today he found he was unable to weight-bear or walking came to the emergency department for further evaluation. 3-16 Follow up on patient s/p fall with left femur fracture. Patient seen and examined. Patient complaining of back pain and spasms. States he has a disability from chronic back pain secondary to lumbar disc disease. Patient denies any fever or chills. Denies any chest pain or shortness of breath. Denies any nausea, vomiting or abdominal pain. 3-17 HAD SURGERY YESTERDAY HOPEFULLY TO SNF TOMORROW OR NEXT DAY NOT VERY MOBILE YET 3-18 CLEARED BY ORTHO CAN GO TO SNF TODAY IF BED IS AVAILABLE CLIVE CM AND RN AND PT OK FOR SNF 3008 SIGNED 1. Left femur fracture s/p trip and fall Hip x-ray significant for mildly comminuted intertrochanteric fracture with medial angulation of the left femur Morphine for pain with bowel regimen Nothing by mouth Orthopedic surgery consulted, appreciate assistance. Status post surgery on NovemberNovember 12, 1959 open treatment internal fixation with trochanteric nail. Anticipate anticoagulation with 81 mg aspirin twice daily for 30 days postoperatively. PT eval/tx SP SURGERY ON 11-24 BY ORTHO 2. Elevated CK Likely secondary to fall IV fluid hydration repeat CK pending 3. BPH/chronic back pain Continue home Flomax Pain management as above 4. Daily drinker On CIWA protocol - no signs of withdrawal. Continue to monitor. Continue on daily thiamine/folate acid/multivitamin CONSTIPATION- MEDS FOR THIS CLEARED BY ORTHO DC TO SNF Pt Condition on Discharge: Good Discharge Disposition: Discharge to SNF Discharge Time: > 30 minutes Discharge Instructions DIET: Follow Instructions for: Heart Healthy Diet, Diabetic Diet Speech Therapy-Diet Recommends: Regular Activities you can perform: Weight Bearing as Jess Other Activity Instructions: PT AND OT AT SNF Follow up Referrals: Orthopedics - 2 Weeks with Twin Richardson MD PCP Follow-up - 2 Weeks New Medications: Tamsulosin (Flomax) 0.4 Mg Cap 0.4 MG PO HS for Manage Prostate Problems, #30 CAP 0 Refills Walker with Front Wheels (Walker with Front Wheels) 1 Mis Mis EA .XX DIRECTED, #[address] (Aspirin DR) 81 Mg Tabdr 81 MG PO BID for Prevent Blood Clot, #60 TAB Folic Acid (Folic Acid) 1 Mg Tablet 1 MG PO DAILY for Nutritional Supplement, #30 TAB Magnesium Hydroxide (Qc Milk of Magnesia) 400 Mg/5 Ml Cindy 30 ML PO BID for Constipation, #2000 ML Multiple Vitamins W/ Minerals (Thera M Plus) 1 Tab 1 TAB PO DAILY for Nutritional Supplement, #30 TAB Oxycodone HCl/Acetaminophen (Oxycodone-Acetaminophen 5-325) 5 Mg-325 Mg Tablet 1 TAB PO Q4H PRN for Pain, #40 TAB Sennosides (Senna-Lax) 8.6 Mg Tab 17.2 MG PO HS for Constipation, #60 TAB Sennosides-Docusate Sodium (Gnp Senna Plus 8.6-50 mg) 8.6 Mg-50 Mg Tab 2 TAB PO BID for Bowel Management, #120 TAB Thiamine HCl (Gnp Vitamin B-1) 100 Mg Tab 100 MG PO DAILY for Nutritional Supplement, #30 TAB [Lactulose Liq] () 30 ML SYRP 30 ML PO DAILY PRN for SEVERE CONSITIPATION, #2000 ML Discontinued Medications: Oxycodone-Acetaminophen (Percocet) 5-325 mg Tab 1-2 TAB PO Q4H PRN for PAIN, TAB 0 Refills Anival Terry DO Nov 26, 2017 10:42
[2017-11-26 12:00] VITALS: BP 115/69; PULSE 50; RESP 18; TEMP 95.6; O2SAT 95
[2017-11-26 14:34] LABS: AUTOMATED NEUTROPHIL # 2.3 TH/MM3 (1.8-7.7); BASOPHIL % 0.7 % (0.0-2.0); EOSINOPHIL # 0.2 TH/MM3 (0-0.4); EOSINOPHIL % 6.6 % (0.0-4.0); HEMATOCRIT 38.1 % (39.0-51.0); HEMOGLOBIN 12.8 GM/DL (13.0-17.0); LYMPH % 21.9 % (9.0-44.0); LYMPHOCYTE # 0.8 TH/MM3 (1.0-4.8); MEAN CELL VOLUME 92.4 FL (80.0-100.0); MEAN CORPUSCULAR HEMOGLOBIN 31.1 PG (27.0-34.0); MEAN CORPUSCULAR HGB CONC 33.7 % (32.0-36.0); MEAN PLATELET VOLUME 8.3 FL (7.0-11.0); MONO % 9.3 % (0.0-8.0); MONOCYTE # 0.3 TH/MM3 (0-0.9); NEUT % 61.5 % (16.0-70.0); PLATELET COUNT 167 TH/MM3 (150-450); RED BLOOD COUNT 4.13 MIL/MM3 (4.50-5.90); RED CELL DISTRIBUTION WIDTH 13.6 % (11.6-17.2); WHITE BLOOD COUNT 3.7 TH/MM3 (4.0-11.0)
[2017-11-26 16:00] VITALS: BP 130/69; PULSE 53; RESP 18; TEMP 97.5; O2SAT 100
[2017-11-26 16:50] LABS: ALBUMIN 2.9 GM/DL (3.4-5.0); ALKALINE PHOSPHATASE 73 U/L (45-117); ALT (GPT) 32 U/L (12-78); AST (GOT) 42 U/L (15-37); BICARBONATE 24.9 MEQ/L (21.0-32.0); BLOOD UREA NITROGEN 14 MG/DL (7-18); CALCIUM 8.4 MG/DL (8.5-10.1); CHLORIDE 98 MEQ/L (98-107); CREATININE 0.71 MG/DL (0.60-1.30); FREE T4 1.48 NG/DL (0.76-1.46); GLOMERULAR FILTRATION RATE 136 ML/MIN (>89); GLUCOSE,RANDOM 84 MG/DL (74-106); MAGNESIUM 2.1 MG/DL (1.5-2.5); PHOSPHORUS 3.1 MG/DL (2.5-4.9); SODIUM (NA) 131 MEQ/L (136-145); TOTAL BILIRUBIN ADULT 0.5 MG/DL (0.2-1.0); TOTAL PROTEIN 6.5 GM/DL (6.4-8.2)
[2017-11-26 19:49] VITALS: O2SAT 99
[2017-11-26 20:00] VITALS: BP 149/77; PULSE 59; RESP 20; TEMP 97.2; O2SAT 99
[2017-11-26] MEDS: SENNOSIDES 8.6 MG TAB PO SCH (20:52)
[2017-11-27] VITALS: BP 130/73; PULSE 52; RESP 20; TEMP 99.2; O2SAT 98
[2017-11-27] MEDS: oxyCODONE/ACETAMINOPHEN 5 MG/325 MG TAB PO PRN ×4 (00:56→16:36)
[2017-11-27] MEDS: SODIUM CHLOR 0.9% 1000 ML INJ 1,000 ML IV SCH ×2 (05:00→15:00)
[2017-11-27] MEDS: LACTATED RINGER'S 1000 ML INJ 1,000 ML IV SCH (05:02)
--- NOTE | 2017-11-27 06:58 | PD.ORT.PN ---
Subjective Subjective Remarks Looks fine. Mild spasm. History of chronic low back pain. Needs more assistance. [facility] Objective Vitals Vital Signs Date Time Temp Pulse Resp B/P (MAP) Pulse Ox O2 Delivery O2 Flow Rate FiO2 11/27/17 00:00 99.2 52 20 130/73 (92) 98 11/26/17 20:00 97.2 59 20 149/77 (101) 99 11/26/17 19:49 99 21 11/26/17 16:00 97.5 53 18 130/69 (89) 100 11/26/17 12:00 95.6 50 18 115/69 (84) 95 11/26/17 08:00 96.9 63 18 109/75 (86) 97 I/O 11/26/17 11/26/17 11/26/17 11/27/17 11/27/17 11/27/17 07:00 15:00 23:00 07:00 15:00 23:00 Intake Total 360 ml 720 ml 240 ml Output Total 600 ml 550 ml 200 ml 400 ml Balance -240 ml 170 ml -200 ml -160 ml Intake Oral 360 ml 720 ml 240 ml Output Urine Total 600 ml 550 ml 200 ml 400 ml # Bowel Movements 0 0 Result Diagram: 11/26/17 1320 11/26/17 1503 Objective Remarks Dressing with minimal drainage. Mild swelling. No calf tenderness. Motor examination normal Assessment & Plan Assessment and Plan Left peritrochanteric hip fracture, comminuted. Chronic low back pain on narcotics, Percocet 5 mg SURGERY: ORIF left hip, trochanteric nail: POD #3. PLAN: Weightbearing as tolerated. Percocet 10 for pain control. He was on this medicine before surgery. One prescription written. Aspirin 81 mg twice a day for 30 days. No dressing change. Physical therapy and ambulation today. [facility]charge to [facility] facility, today or when medically clear Walker. Follow-up in 2 weeks. Will follow while in hospital peripherally Twin Richardson MD Nov 27, 2017 06:58
[2017-11-27] MEDS: FOLIC ACID 1 MG TAB PO SCH (07:50)
[2017-11-27] MEDS: DOCUSATE SODIUM 50 MG/SENNA 8.6 MG TAB PO SCH (07:50)
[2017-11-27] MEDS: MAGNESIUM HYDROXIDE SUSP 30 ML CUP PO SCH (07:51)
[2017-11-27] MEDS: ASPIRIN EC 81 MG TABEC PO SCH (07:51)
[2017-11-27] MEDS: MULTIVITAMINS/MINERALS THERAPEUTIC TAB PO SCH (07:51)
[2017-11-27] MEDS: THIAMINE HCL 100 MG TAB PO SCH (07:51)
[2017-11-27] MEDS: SENNOSIDES 8.6 MG TAB PO SCH (07:51)
[2017-11-27 07:54] VITALS: BP 139/74; PULSE 56; RESP 18; TEMP 96.8; O2SAT 99
[2017-11-27] MEDS: SODIUM CHLORIDE 0.9% FLUSH 10 ML FLUSH IV FLUSH SCH (08:01)
[2017-11-27 08:17] LABS: AUTOMATED NEUTROPHIL # 1.3 TH/MM3 (1.8-7.7); BASOPHIL % 0.6 % (0.0-2.0); EOSINOPHIL # 0.2 TH/MM3 (0-0.4); EOSINOPHIL % 7.6 % (0.0-4.0); HEMOGLOBIN 12.7 GM/DL (13.0-17.0); LYMPH % 36.2 % (9.0-44.0); LYMPHOCYTE # 1.1 TH/MM3 (1.0-4.8); MEAN CELL VOLUME 92.7 FL (80.0-100.0); MEAN CORPUSCULAR HGB CONC 33.4 % (32.0-36.0); MEAN PLATELET VOLUME 7.4 FL (7.0-11.0); MONO % 13.3 % (0.0-8.0); MONOCYTE # 0.4 TH/MM3 (0-0.9); NEUT % 42.3 % (16.0-70.0); PLATELET COUNT 170 TH/MM3 (150-450); RED CELL DISTRIBUTION WIDTH 13.3 % (11.6-17.2); WHITE BLOOD COUNT 3.1 TH/MM3 (4.0-11.0)
[2017-11-27 08:21] LABS: ALBUMIN 2.6 GM/DL (3.4-5.0); AST (GOT) 54 U/L (15-37); BLOOD UREA NITROGEN 10 MG/DL (7-18); CALCIUM 8.3 MG/DL (8.5-10.1); CHLORIDE 103 MEQ/L (98-107); CREATININE 0.64 MG/DL (0.60-1.30); GLOMERULAR FILTRATION RATE 154 ML/MIN (>89); GLUCOSE,RANDOM 73 MG/DL (74-106); MAGNESIUM 2.1 MG/DL (1.5-2.5); SODIUM (NA) 134 MEQ/L (136-145)
[2017-11-27 08:26] LABS: ALKALINE PHOSPHATASE 57 U/L (45-117); ALT (GPT) 36 U/L (12-78); PHOSPHORUS 3.4 MG/DL (2.5-4.9); TOTAL BILIRUBIN ADULT 0.6 MG/DL (0.2-1.0)
[2017-11-27 09:20] VITALS: O2SAT 100
--- NOTE | 2017-11-27 11:18 | HHI.PR ---
Subjective Remarks Discharged on 11/26/17, awaiting SNF placement Patient reports he is feeling well. Pain is controlled. Anxious to go to rehab. Objective Vitals Vital Signs Date Time Temp Pulse Resp B/P (MAP) Pulse Ox O2 Delivery O2 Flow Rate FiO2 11/27/17 09:20 100 21 11/27/17 07:54 96.8 56 18 139/74 (95) 99 11/27/17 00:00 99.2 52 20 130/73 (92) 98 11/26/17 20:00 97.2 59 20 149/77 (101) 99 11/26/17 19:49 99 21 11/26/17 16:00 97.5 53 18 130/69 (89) 100 11/26/17 12:00 95.6 50 18 115/69 (84) 95 I/O 11/26/17 11/26/17 11/26/17 11/27/17 11/27/17 11/27/17 07:00 15:00 23:00 07:00 15:00 23:00 Intake Total 360 ml 720 ml 240 ml Output Total 600 ml 550 ml 200 ml 400 ml Balance -240 ml 170 ml -200 ml -160 ml Intake Oral 360 ml 720 ml 240 ml Output Urine Total 600 ml 550 ml 200 ml 400 ml # Bowel Movements 0 0 Result Diagram: 11/27/17 0725 11/27/17 0725 Objective Remarks GENERAL: This is a well-nourished, well-developed patient, in no apparent distress. CARDIOVASCULAR: Normal rate and regular rhythm without murmurs, gallops, or rubs. RESPIRATORY: Good respiratory efforts. Breath sounds equal and clear to auscultation bilaterally. GASTROINTESTINAL: Abdomen soft, non-tender, non-distended. Normal active bowel sounds MUSCULOSKELETAL: Extremities without cyanosis, or edema. Postop left hip dressing appear intact. Neurovascularly intact distally. NEURO: Alert & Oriented x4 to person, place, time, situation. Moves all ext x4 PSYCH: Appropriate mood and affect. Procedures Operative Report Date of Surgery: Nov 24, 2017 Preoperative Diagnosis: Left peritrochanteric hip fracture Postoperative Diagnosis: Same Procedure: Open treatment internal fixation left hip fracture with trochanteric nail Anesthesia: Gen. Surgeon: Twin Richardson Flower Maker(s): Staff Operation and Findings: EBL: 100 cc INDICATION: This patient is a 62-year-old [place] male with pain in the left hip after a fall 2 days ago. He presented yesterday to the emergency room and x-ray showed evidence of an impacted peritrochanteric hip fracture. He presents for surgical treatment. PROCEDURE: The patient was brought to the operating room and anesthetized in the supine position. He was placed on the fracture table with the left leg held extended. The opposite leg was in the well leg contreras. The hip fracture was reduced anatomically. The hip and leg was scrubbed with alcohol followed by Hibiclens followed by ChloraPrep. A timeout was done and antibiotics were given within 1 hour time window. A longitudinal incision was made over the lateral aspect of the proximal femur. Dissection continued down to the top of the greater trochanter. A cannulated awl was placed down through the top of the greater trochanter followed by placement of the guidepin along the shaft of the femur. This was reamed distally to 1 mm greater than the bhakti size and proximally to 17 mm. A separate incision was made laterally followed by placement of guidepin to the proper position of the femoral head. This is reamed and tapped in the proper length was placed up into the proper location. A single transverse screw was placed distally through the bhakti. A Rotating screw was positioned in proper position Intraoperative x-rays were obtained. Alignment was satisfactory. No complication was noted. The wound was irrigated copiously. Hemostasis was controlled. The fascia was closed with interrupted Vicryl suture, subcutaneous tissue 2-0 Vicryl suture, skin with running intradermal 3-0 Vicryl followed by Steri-Strips and benzoin. A sterile dressing was applied The patient was awakened and taken to the recovery room in satisfactory condition. FINDINGS: There was evidence of an impacted femoral neck fracture. We reduced the fracture near anatomically. There was no complication A/P Problem List: (1) Femur fracture, left ICD Code: S72.92XA - Unspecified fracture of left femur, initial encounter for closed fracture Status: Acute (2) Closed left hip fracture ICD Code: S72.002A - Fracture of unspecified part of neck of left femur, initial encounter for closed fracture Status: Acute Assessment and Plan Left femur fracture s/p trip and fall Hip x-ray significant for mildly comminuted intertrochanteric fracture with medial angulation of the left femur Status post surgery on NovemberNovember 12, 1959 open treatment internal fixation with trochanteric nail. Anticipate anticoagulation with 81 mg aspirin twice daily for 30 days postoperatively. BPH/chronic back pain Continue home Flomax Pain management as above Daily drinker no signs of withdrawal. Continue to monitor. Continue on daily thiamine/folate acid/multivitamin Discharge Planning Discharge to SNF today once arrangements are made. Discussed with case management Problem Qualifiers (1) Femur fracture, left: Qualified Codes: S72.142A - Displaced intertrochanteric fracture of left femur , initial encounter for closed fracture Rebeca Hameed MD Nov 27, 2017 11:18
[2017-11-27 12:28] VITALS: BP 147/82; PULSE 64; RESP 18; TEMP 97.2; O2SAT 98
[2017-11-27 13:46] LABS: HEMOGLOBIN A1C 5.6 % (4.3-6.0)
[2017-11-27 16:00] VITALS: BP 122/70; PULSE 62; RESP 17; TEMP 96.6; O2SAT 99
== END 2017-11-27 17:55 | DRG 482 ==
LOC: NEDAMB 13:39 → NEDA 20:02 → NEDH 20:02 → UNDOADMIN 20:02 → NEDA 22:29 → NEDH 22:29 → N06A 11-24 15:34
PROVIDERS: ADMIT Family Medicine; ATTEND Family Medicine
PROC: 0QS704Z Reposition Left Upper Femur with Internal Fixation Device, Open Approach (ICD-10-PCS; principal; 2017-11-24 12:55)
DX: S72.142A Displaced intertrochanteric fracture of left femur, initial encounter for closed fracture (principal); K75.9 Inflammatory liver disease, unspecified; S72.002A Fracture of unspecified part of neck of left femur, initial encounter for closed fracture; M54.2 Cervicalgia; M54.5 Low back pain; G89.29 Other chronic pain; K59.00 Constipation, unspecified; N40.0 Benign prostatic hyperplasia without lower urinary tract symptoms; K21.9 Gastro-esophageal reflux disease without esophagitis; M51.9 Unspecified thoracic, thoracolumbar and lumbosacral intervertebral disc disorder; F17.290 Nicotine dependence, other tobacco product, uncomplicated; W01.0XXA Fall on same level from slipping, tripping and stumbling without subsequent striking against object, initial encounter; Y92.009 Unspecified place in unspecified non-institutional (private) residence as the place of occurrence of the external cause; Z98.1 Arthrodesis status; Z79.82 Long term (current) use of aspirin; Z79.891 Long term (current) use of opiate analgesic; Z23 Encounter for immunization
CPT/HCPCS: 73502; 76000; 80048; 80053; 81001; 82550; 82552; 83036; 83735; 84100; 84439; 84443; 85025; 85610; 85730; 86850; 86900; 86901; 90686; 90732; 94150; 96361; 96372; 96374; 96376; C1713; J0131; J0690; J1100; J1580; J2060; J2250; J2270; J2370; J2405; J2710; J3010; J7030; J7120; Q2038

== ENCOUNTER 2018-05-10 08:28 | Observation (INO) ==
[2018-05-10] MEDS ORDERED: Chlorhexidine Gluconate 2% 1 Pack (2 Cloths) TOPICAL PRN (09:07)
[2018-05-10] MEDS ORDERED: Metoprolol Tartrate 25 MG Tablet PO PRN (09:07)
[2018-05-10] MEDS ORDERED: Sodium Chlor 0.9% Inj 500 ML IV.SIG PRN (09:07)
[2018-05-10] MEDS ORDERED: ceFAZolin 2 GM Premix Inj 2 GM/100 ML BAG IV.SIG SCH (09:13)
[2018-05-10] MEDS ORDERED: Chlorhexidine 4% Topical 120 APPLIC/120 ML Bottle TOPICAL SCH (09:15)
[2018-05-10] MEDS ORDERED: Vancomycin Inj 1,000 MG in Sodium Chlor 0.9% Inj 250 ML IV.SIG SCH (10:00)
[2018-05-10] MEDS ORDERED: Propofol Inj 500 MG/50 ML Vial ONE ×3 (10:02→14:12)
[2018-05-10] MEDS ORDERED: Ketamine Inj 50 MG/5 ML Syringe IV.PUSH ONE ×2 (10:34→14:11)
[2018-05-10] MEDS ORDERED: Bupivacaine/Epinephrine Inj 0.25% 50 ML Vial ONE (11:07)
[2018-05-10] MEDS ORDERED: Lidocaine PF 1% Inj 5 ML Syringe INFILTRATN ONE (14:05)
[2018-05-10] MEDS ORDERED: Normosol-R pH 7.4 Inj 1,000 ML IV.CONT ONE (14:05)
[2018-05-10] MEDS ORDERED: Phenylephrine/NS 1000 MCG/10ML Syringe IV.PUSH ONE (14:05)
[2018-05-10] MEDS ORDERED: Succinylcholine Inj 200 MG/10 ML Vial IV.PUSH ONE (14:05)
[2018-05-10] MEDS ORDERED: Dexmedetomidine Inj 200 MCG/2 ML Vial ONE (14:12)
[2018-05-10] MEDS ORDERED: Bisacodyl 10 MG Supp RECTAL PRN (16:07)
[2018-05-10] MEDS ORDERED: Zolpidem Tartrate 5 MG Tablet PO PRN (16:07)
[2018-05-10] MEDS ORDERED: Post-op Orders (for Pharmacy) OTHER STA ×2 (16:07)
--- NOTE | 2018-05-10 16:17 | P.OP ---
- Preoperative Diagnosis (1) Cervical myelopathy with cervical radiculopathy Preoperative Diagnosis: Status post ACDF C4-C6, remote. Osteophyte disc complex C3-4. Herniated nucleus pulposus C2-3. Cervical spinal stenosis C3-4, severe. Cervical spinal stenosis C2-3 moderate. Myelomalacia cervical spine. Cervical myelopathy. Bilateral cervical radiculopathy Postoperative Diagnosis: Same Date of procedure: 05/10/18 Procedure: Anterior cervical discectomy decompression and bilateral foraminotomies, C3-4. Placement of interbody cage, C3-4. Anterior cervical fusion, C3-4. Left anterior iliac crest bone graft. Placement of anterior spinal segmental instrumentation, cervical spine, C3 4 Anesthesia: GETA Surgeon: Twin Richardson MD Brake Lining Finisher Asbestos: Liya Narvaez MD Operation and Findings: EBL: 100 cc INDICATIONS: This patient is a 62-year-old male status post previous ACDF many years ago C4-C6 with residual post fusion kyphosis. The patient is developing a gait disturbance with weakness in his arms. Investigative studies show evidence of myelomalacia at C3-4 with severe spinal stenosis related to an osteophyte disc complex at that level and a central disc herniation C2-3 creating mild to moderate central stenosis. This patient presents for staged procedures first approaching the C3-4 and within a period of time posteriorly at C2-3 and C3-4 NOTE: Liya Narvaez MD was present for the entire surgical procedure as my research lab assistant. In my medical opinion her skill and care was necessary for proper management of this patient PROCEDURE: The patient was brought to the operating room and anesthetized in the supine position. This patient was positioned supine on the radiolucent table. All pressure points were protected in the anterior cervical spine and iliac crest was scrubbed with alcohol followed by Hibiclens followed by ChloraPrep. A timeout was done and antibiotics were given within 1 hour time window. Lateral radiographic images were used identifying the proper level. A right anterior incision was made in line with skin creases. The platysma was opened in line with the incision. Deep dissection continued in the interval between the carotid sheath and the esophagus. The longus-coli muscles were lifted on both sides and retractors were positioned allowing good exposure. Lateral radiographic images were used to identify the proper level. [place] style interosseous pins were placed at C3 and C4 allowing exposure to that level. The microscope was rolled into the field. A total discectomy was accomplished and posterior osteophytes were removed. The posterior longitudinal ligament and annulus was taken down. Bilateral foraminotomies were accomplished. The endplates were squared up anticipating later bone grafting. A blunt probe could be placed out each foramen without evidence of nerve root compromise. The left iliac crest was approached. A small stab incision was made allowing percutaneous access to the anterior iliac crest. Multiple cores of cancellous bone were harvested and taken to the back table to be used for later bone grafting. The wound was irrigated anesthetized and closed with 4-0 Vicryl followed by Dermabond. FINDINGS: There was severe spinal stenosis at C3-4. There was a calcified osteophyte disc complex centrally into the left. There was no complication that was appreciated.
[2018-05-10] MEDS ORDERED: fentaNYL Citrate Inj 100 MCG/2 ML Ampul ONE (16:41)
[2018-05-10] MEDS ORDERED: *morphine SULFATE 10 MG/ML PERIprocedure ONLY ONE (17:04)
--- NOTE | 2018-05-10 17:26 | XR ---
EXAM DATE: 05/10/2018 5:24 PM EDT AGE/SEX: 62 years / Male INDICATIONS: C2-C3 fusion done in the operating room. CLINICAL DATA: This is the patient's initial encounter. Patient reports that signs and symptoms have been present for 1 day and indicates a pain score of Nonresponsive. MEDICAL/SURGICAL HISTORY: Hepatitis C. . ORIF left hip. COMPARISON: No prior exams available for comparison. FINDINGS: Status post anterior cervical fusion at C3-4. There is good alignment of the fusion. The hardware is grossly intact. CONCLUSION: Good position and alignment on this postoperative study. Electronically signed by: Will Mckeon MD 05/10/2018 5:25 PM EDT
[2018-05-10] MEDS: Senna/Docusate Sodium 8.6/50 MG Tablet PO SCH (21:02)
[2018-05-10] MEDS: Morphine Inj 4 MG/ML Vial IV.PUSH PRN ×2 (21:03→23:09)
[2018-05-11] MEDS: Morphine Inj 4 MG/ML Vial IV.PUSH PRN (03:53)
--- NOTE | 2018-05-11 07:58 | P.PNOP ---
Subjective Interval history: Doing ok today. No new arm or leg pain. No new weakness. Some cramping and weakness right hand still present. No other concerns. Urinating well. Ok for d/c home. He has pain medications from a [facility] physician. Physical Exam Vital signs: Vital Signs 05/10/18 10:49 05/10/18 16:34 05/10/18 16:36 Temperature 97.7 F 97.8 F Pulse Rate 62 80 Respiratory Rate 20 15 Blood Pressure 170/90 H 148/70 H Pulse Oximetry 100 100 100 05/10/18 16:45 05/10/18 17:00 05/10/18 17:15 Temperature 98 F Pulse Rate 76 69 69 Respiratory Rate 22 18 20 Blood Pressure 157/73 H 146/58 H 170/72 H Pulse Oximetry 100 97 100 05/10/18 17:25 05/10/18 17:30 05/10/18 17:40 Temperature Pulse Rate 61 Respiratory Rate 22 Blood Pressure 167/73 H Pulse Oximetry 98 100 96 05/10/18 18:25 05/10/18 20:00 05/10/18 21:05 Temperature 97.7 F 98.4 F Pulse Rate 68 91 H Respiratory Rate 18 16 18 Blood Pressure 162/74 H 175/90 H Pulse Oximetry 99 96 05/11/18 00:00 05/11/18 04:00 Temperature 98.4 F 98.4 F Pulse Rate 78 65 Respiratory Rate 16 16 Blood Pressure 164/90 H 172/93 H Pulse Oximetry 99 99 Intake & Output 05/10/18 05/11/18 05/11/18 18:59 06:59 18:59 Intake Total 2650 / 2650 1050 / 1050 1000 / 1000 Output Total 200 / 200 1000 / 1000 Balance 2450 / 2450 50 / 50 1000 / 1000 Weight 60.328 kg 60.2 kg Intake: IV 350 / 350 200 / 200 1000 / 1000 LR 1000 mL Inj 1,000 ML @ 80 1000 / 1000 mls/hr IV.CONT .[id number] [facility] Rx# :[id number] Vancomycin Inj 1,000 MG In NS 250 / 250 Inj 250 ML @ 250 mls/hr IV.SIG ELECTRONIC PARTS DESIGNER [facility] Rx#:[id number] Ancef 2 GM Premix Inj 2 gm In 100 / 100 100 ml @ 100 mls/hr IV.SIG ELECTRONIC PARTS DESIGNER [facility] Rx#:[id number] Ancef Inj 1,000 MG In NS Inj 200 / 200 100 ML @ 200 mls/hr IV.SIG Q8H [facility] Rx#:[id number] Oral 850 / 850 Anesthesia Amount 2300 / 2300 Output: Urine 100 / 100 1000 / 1000 Estimated Blood Loss 100 / 100 Other: # Voids 1 Date of Last Bowel Movement 05/10/18 Weight On Admission 60.5 kg Narrative: Using his walker NAD AAOx3 C/S Anterior dressing c/d/i, no drainage, mild warmth, no erythema +motor biceps 5-/5 right, Grievance Manager 4/5 right, +sensation Neg homans bilat - Constitutional no acute distress Results - Imaging Impressions Cervical Spine X-Ray 05/10/18 00:00 CONCLUSION: Good position and alignment on this postoperative study. - Procedures ACDF C34, bone graft Assessment and Plan - Ortho Post Op Day # 1 - Assessment and Plan pod#1 s/p ACDF C34, bone graft Cervical myelopathy Doing well. No new pain. No urinary incontinence Ok to d/c home today. Continue cervical collar real time operator Ok for daily dressing changes. Walker to assist w ambulation PO pain meds per his physician. F/U 2 weeks postop. Possible staged posterior cervical surgery 1-2 weeks.
--- NOTE | 2018-05-11 08:00 | P.DS ---
Date of admission: 05/10/18 18:30 Primary care physician: Pedro Corado Attending physician on discharge: Twin Richardson Anticipated date of discharge: 05/11/18 DS: Summary Hospital Course: Surgical treatment was performed on the day of admission without complication. The patient recovered well in PACU and was transferred to the orthopedic floor. IV and oral medications were supplied. The patient was compliant with physical therapy and his crevical collar, including cervical restrictions. After 1 day he was found to be stable and discharged to a ____. She was encouraged to continue physical therapy, to elevate the operative limb and ice it 2-3 times daily, and to pursue a high fiber diet. She was given prescriptions of [place] 7.5mg and ASA 81mg twice daily. - Time Spent with Patient Total time spent providing and/or coordinating discharge services: - Quality: VTE Deep Vein Thrombosis/Pulmonary Embolism Present on Admission: No Exam Vital signs: Vital Signs 05/10/18 10:49 05/10/18 16:34 05/10/18 16:36 Temperature 97.7 F 97.8 F Pulse Rate 62 80 Respiratory Rate 20 15 Blood Pressure 170/90 H 148/70 H Pulse Oximetry 100 100 100 05/10/18 16:45 05/10/18 17:00 05/10/18 17:15 Temperature 98 F Pulse Rate 76 69 69 Respiratory Rate 22 18 20 Blood Pressure 157/73 H 146/58 H 170/72 H Pulse Oximetry 100 97 100 05/10/18 17:25 05/10/18 17:30 05/10/18 17:40 Temperature Pulse Rate 61 Respiratory Rate 22 Blood Pressure 167/73 H Pulse Oximetry 98 100 96 05/10/18 18:25 05/10/18 20:00 05/10/18 21:05 Temperature 97.7 F 98.4 F Pulse Rate 68 91 H Respiratory Rate 18 16 18 Blood Pressure 162/74 H 175/90 H Pulse Oximetry 99 96 05/11/18 00:00 05/11/18 04:00 Temperature 98.4 F 98.4 F Pulse Rate 78 65 Respiratory Rate 16 16 Blood Pressure 164/90 H 172/93 H Pulse Oximetry 99 99 Intake & Output 05/10/18 05/11/18 05/11/18 18:59 06:59 18:59 Intake Total 2650 / 2650 1050 / 1050 1000 / 1000 Output Total 200 / 200 1000 / 1000 Balance 2450 / 2450 50 / 50 1000 / 1000 Weight 60.328 kg 60.2 kg Intake: IV 350 / 350 200 / 200 1000 / 1000 LR 1000 mL Inj 1,000 ML @ 80 1000 / 1000 mls/hr IV.CONT .[id number] [facility] Rx# :[id number] Vancomycin Inj 1,000 MG In NS 250 / 250 Inj 250 ML @ 250 mls/hr IV.SIG ACCOUNTING SUPPORT SPECIALIST [facility] Rx#:[id number] Ancef 2 GM Premix Inj 2 gm In 100 / 100 100 ml @ 100 mls/hr IV.SIG ACCOUNTING SUPPORT SPECIALIST [facility] Rx#:[id number] Ancef Inj 1,000 MG In NS Inj 200 / 200 100 ML @ 200 mls/hr IV.SIG Q8H [facility] Rx#:[id number] Oral 850 / 850 Anesthesia Amount 2300 / 2300 Output: Urine 100 / 100 1000 / 1000 Estimated Blood Loss 100 / 100 Other: # Voids 1 Date of Last Bowel Movement 05/10/18 Weight On Admission 60.5 kg Results Procedures completed during hospitalization: ACDF C34, bone graft - Impressions ITS Impressions Cervical Spine X-Ray 05/10/18 00:00 CONCLUSION: Good position and alignment on this postoperative study. Discharge Plan - Discharge Disposition Patient Disposition: 01 Discharge Home - Discharge Condition Condition: Good - Discharge Order Discharge Orders: Discharge Order (Routine); Ordered 05/11/18 Ordered By: Twin Richardson - Physicians Team Attending Provider: Twin Richardson - Rxs /Orders / Referrals /Forms Prescriptions: New oxycodone-acetaminophen 7.5-325 mg Tablet 2 tab PO Q4H PRN (Reason: Pain Scale 6 To 10) Qty: 0 RF: 0 Continue tamsulosin 0.4 mg Capsule,Extended Release 24hr 0.4 mg PO DAILY Referrals: Pedro Soto DO [Other] - See Instructions Twin Richardson MD [Physician] - Forms: School Release, Work Release/Restrictions - Discharge Instructions Patient Printed Instructions: Oxycodone/Acetaminophen (By mouth), Laminectomy ( DC), Surgical Site Infections (DC), General Anesthesia (DC) Additional Instructions: Please follow a Regular Diet Please wear your cervical brace multimedia engineer. Please see additional instructions provided for you by your physician. - Post Discharge Care Plan Care Plan Goals: Your Health Problems: Anterior cervical fusion C34 Cervical myelopathy (compression of the spinal cord) Goals to Promote Your Health: * To prevent worsening of your condition * To maintain your health at the optimal level Directions to Meet Your Goals: * Take your medications as prescribed * Follow your dietary instruction * Follow activity as directed. Continue your cervical brace multimedia engineer for 4 weeks. * Keep your appointments as scheduled * Take your immunizations and boosters as scheduled * If your symptoms worsen call your PCP * If no PCP go to Urgent Care or Emergency Room Smoking is dangerous to your health. Avoid second hand smoke. You may reach the 24-hour crisis hotline for domestic abuse at .
[2018-05-11 08:44] VITALS: BP 152/81; PULSE 70; RESP 18; TEMP 98; O2SAT 95
[2018-05-11] MEDS: Senna/Docusate Sodium 8.6/50 MG Tablet PO SCH (08:50)
== END 2018-05-11 10:44 | disposition home or self-care (01) ==
LOC: HSDC 08:28 → N06 08:28 → HSDI 16:07 → N06 18:08
PROVIDERS: ADMIT Orthopaedic Surgery Orthopaedic Surgery of the Spine; ATTEND Orthopaedic Surgery Orthopaedic Surgery of the Spine

== ENCOUNTER 2018-05-31 05:52 | Inpatient (IN) ==
[2018-05-31] MEDS ORDERED: Chlorhexidine Gluconate 2% 1 Pack (2 Cloths) TOPICAL ONE (06:17)
[2018-05-31] MEDS ORDERED: Metoprolol Tartrate 25 MG Tablet PO ONE (06:17)
[2018-05-31] MEDS ORDERED: Chlorhexidine 4% Topical 120 APPLIC/120 ML Bottle TOPICAL SCH (06:30)
[2018-05-31] MEDS ORDERED: Propofol Inj 500 MG/50 ML Vial ONE (06:57)
[2018-05-31] MEDS ORDERED: Sodium Chlor 0.9% Inj 500 ML IV.SIG SCH (07:00)
[2018-05-31] MEDS ORDERED: ceFAZolin 2 GM Premix Inj 2 GM/50 ML PIGGYBACK IV.SIG SCH (07:00)
[2018-05-31] MEDS ORDERED: Vancomycin Inj 1,000 MG in Sodium Chlor 0.9% Inj 250 ML IV.SIG SCH (07:00)
[2018-05-31] MEDS ORDERED: Succinylcholine Inj 100 MG/5 ML Syringe IV.PUSH ONE (07:50)
[2018-05-31] MEDS ORDERED: Lidocaine PF 1% Inj 5 ML Syringe OTHER ONE (07:50)
[2018-05-31] MEDS ORDERED: Phenylephrine/NS 1000 MCG/10ML Syringe IV.PUSH ONE (08:30)
[2018-05-31] MEDS ORDERED: HYDROmorphone PF Inj 2 MG/ML Vial ONE ×2 (10:15→12:28)
[2018-05-31] MEDS ORDERED: oxyCODONE/Acetaminophen 10/325 Tablet PO PRN (10:53)
[2018-05-31] MEDS ORDERED: Bisacodyl 10 MG Supp RECTAL PRN (10:53)
[2018-05-31] MEDS ORDERED: Post-op Orders (for Pharmacy) OTHER STA (10:53)
--- NOTE | 2018-05-31 11:05 | P.BOP ---
Date of procedure: 05/31/18 Procedure: 1. C2-C3 laminectomy 2. C3-C5 posterior cervical arthrodesis 3. C3-C5 posterior instrumentation with lateral mass screws at C3, C4 and C5 4. Placement of allograft Anesthesia: ADONIS Surgeon: Chelly Narvaez MD Estimated blood loss (mL): 100 Pathology: none sent Condition: stable Disposition: PACU
--- NOTE | 2018-05-31 11:15 | XR ---
EXAM DATE: 05/31/2018 11:06 AM EDT AGE/SEX: 62 years / Male INDICATIONS: Neck surgery. CLINICAL DATA: This is the patient's initial encounter. Patient reports that signs and symptoms have been present for 1 day and indicates a pain score of Nonresponsive. MEDICAL/SURGICAL HISTORY: None. . Prior neck surgery. COMPARISON: [facility], [facility], 05/10/2018. . FINDINGS: 2 intraoperative films demonstrate there is been fusion anteriorly at C3-4 and intralaminar screws fr om C3 to C5. There are no visible complications. CONCLUSION: Intraoperative films demonstrate hardware as above Electronically signed by: Corey Joel MD 05/31/2018 11:14 AM EDT
[2018-05-31] MEDS ORDERED: *Meperidine Inj 25 MG/ML Vial PERIprocedural Use ONLY ONE (11:38)
[2018-05-31] MEDS ORDERED: fentaNYL Citrate Inj 100 MCG/2 ML Ampul ONE (11:40)
[2018-05-31] MEDS ORDERED: *morphine SULFATE 10 MG/ML PERIprocedure ONLY ONE (12:02)
[2018-05-31] MEDS: Morphine Inj 4 MG/ML Vial IV.PUSH PRN ×4 (13:05→20:20)
[2018-05-31] MEDS: oxyCODONE/Acetaminophen 10/325 Tablet PO PRN ×3 (14:15→22:18)
[2018-05-31] MEDS: Multivitamin/Minerals Therapeutic Tablet PO SCH (20:21)
[2018-05-31] MEDS: Senna/Docusate Sodium 8.6/50 MG Tablet PO SCH (20:22)
[2018-05-31] MEDS ORDERED: Temazepam 15 MG Capsule PO PRN (21:00)
[2018-06-01] MEDS: Morphine Inj 4 MG/ML Vial IV.PUSH PRN ×5 (00:32→11:29)
[2018-06-01] MEDS: oxyCODONE/Acetaminophen 10/325 Tablet PO PRN ×2 (03:39→08:39)
--- NOTE | 2018-06-01 07:59 | P.DS ---
Date of admission: 05/31/18 05:52 Primary care physician: No Primary Care Physician Attending physician on discharge: Twin Richardson Anticipated date of discharge: 06/01/18 DS: Summary Hospital Course: Surgical treatment was performed on the day of admission without complication. The patient recovered well in PACU and was transferred to the orthopedic floor. IV and oral medications were supplied. The patient was compliant with physical therapy and all precautions. After ___ days she was found to be stable and discharged to a ____. She was encouraged to continue physical therapy, to elevate the operative limb and ice it 2-3 times daily, and to pursue a high fiber diet. She was given prescriptions of [place] 7.5mg and ASA 81mg twice daily. - Time Spent with Patient Total time spent providing and/or coordinating discharge services: Greater than 30 minutes - Quality: VTE Deep Vein Thrombosis/Pulmonary Embolism Present on Admission: No Exam Vital signs: Vital Signs 05/31/18 11:30 05/31/18 11:45 05/31/18 11:55 Temperature 98.2 F Pulse Rate 67 57 L Respiratory Rate 23 21 Blood Pressure 146/78 H 149/81 H Pulse Oximetry 97 96 97 05/31/18 12:00 05/31/18 12:15 05/31/18 12:30 Temperature Pulse Rate 67 60 64 Respiratory Rate 24 23 20 Blood Pressure 143/83 H 131/76 149/81 H Pulse Oximetry 99 98 100 05/31/18 15:41 05/31/18 20:00 06/01/18 00:00 Temperature 97.3 F L 98.3 F 98.6 F Pulse Rate 71 53 L 56 L Respiratory Rate 18 18 16 Blood Pressure 164/86 H 138/74 179/85 H Pulse Oximetry 100 97 98 06/01/18 04:00 Temperature 98.2 F Pulse Rate 59 L Respiratory Rate 19 Blood Pressure 137/73 Pulse Oximetry 96 Intake & Output 05/31/18 06/01/18 06/01/18 18:59 06:59 18:59 Intake Total 2400 / 2400 200 / 200 Output Total 1300 / 1300 550 / 550 Balance 1100 / 1100 -350 / -350 Intake: IV 400 / 400 200 / 200 Vancomycin Inj 1,000 MG In NS 250 / 250 Inj 250 ML @ 250 mls/hr IV.SIG BUSINESS DEVELOPMENT INTERN [facility] Rx#:[id number] Ancef 2 GM Premix Inj 2 gm In 50 / 50 50 ml @ 100 mls/hr IV.SIG BUSINESS DEVELOPMENT INTERN [facility] Rx#:[id number] Ancef Inj 1,000 MG In NS Inj 100 / 100 200 / 200 100 ML @ 200 mls/hr IV.SIG Q6H [facility] Rx#:[id number] Oral 1100 / 1100 Anesthesia Amount 900 / 900 Output: Urine 500 / 500 550 / 550 Estimated Blood Loss 100 / 100 Urine Amount (Catheter) 700 / 700 Indwelling Urethral Catheter 700 / 700 Other: # Voids 1 Date of Last Bowel Movement 05/30/18 # Bowel Movements 0 Results Procedures completed during hospitalization: Posterior cervical fusion C34, C45; Laminectomy C23, C34 - Impressions ITS Impressions Cervical Spine X-Ray 05/31/18 00:00 CONCLUSION: Intraoperative films demonstrate hardware as above Discharge Plan - Discharge Disposition Patient Disposition: 01 Discharge Home - Discharge Condition Condition: Good - Discharge Order Discharge Orders: Discharge Order (Routine); Ordered 06/01/18 Ordered By: Twin Richardson - Physicians Team Primary Care Provider: Primary Care Alissa Bobo Attending Provider: Twin Richardson - Rxs /Orders / Referrals /Forms Prescriptions: Continue oxycodone-acetaminophen 7.5-325 mg Tablet 2 tab PO Q4H PRN (Reason: Pain Scale 6 To 10) Qty: 0 RF: 0 tamsulosin 0.4 mg Capsule,Extended Release 24hr 0.4 mg PO DAILY Referrals: Primary Care Alissa Bobo [Primary Care Provider] - See Instructions - Discharge Instructions Patient Printed Instructions: Oxycodone/Acetaminophen (By mouth), Tamsulosin ( By mouth), Anterior Cervical Discectomy (DC), Laminectomy (DC), How to Choose and Use a Walker (GEN), Fall Prevention (ED), Petroleum J Collar (ED) Additional Instructions: Sugical Procedure was posterior cervical fusion Follow up with your pain management doctor Follow up as directed - Post Discharge Care Plan Care Plan Goals: Your Health Problems: Posterior cervical laminectomy C23, C34, Posterior cervical fusion C34, C45 Goals to Promote Your Health: * To prevent worsening of your condition * To maintain your health at the optimal level Directions to Meet Your Goals: * Take your medications as prescribed * Follow your dietary instruction. Soft diet for 1-2 days to assist with a sore throat. * Follow activity as directed. Wear your cervical brace CORE INSPECTOR for 4 weeks. Do not remove to sleep. Remove only for hygiene. * Keep your appointments as scheduled * Take your immunizations and boosters as scheduled * If your symptoms worsen call your PCP * If no PCP go to Urgent Care or Emergency Room Smoking is dangerous to your health. Avoid second hand smoke. You may reach the 24-hour crisis hotline for domestic abuse at .
--- NOTE | 2018-06-01 07:59 | P.PNOP ---
Subjective Interval history: Doing well in regards to arm pain. He still has tingling but no new pain. He notes increased posterior neck pain and aching. He continues to have left hip pain but this was present prior to surgery. No new CP or SOB. Sore throat. Physical Exam Vital signs: Vital Signs 05/31/18 11:30 05/31/18 11:45 05/31/18 11:55 Temperature 98.2 F Pulse Rate 67 57 L Respiratory Rate 23 21 Blood Pressure 146/78 H 149/81 H Pulse Oximetry 97 96 97 05/31/18 12:00 05/31/18 12:15 05/31/18 12:30 Temperature Pulse Rate 67 60 64 Respiratory Rate 24 23 20 Blood Pressure 143/83 H 131/76 149/81 H Pulse Oximetry 99 98 100 05/31/18 15:41 05/31/18 20:00 06/01/18 00:00 Temperature 97.3 F L 98.3 F 98.6 F Pulse Rate 71 53 L 56 L Respiratory Rate 18 18 16 Blood Pressure 164/86 H 138/74 179/85 H Pulse Oximetry 100 97 98 06/01/18 04:00 Temperature 98.2 F Pulse Rate 59 L Respiratory Rate 19 Blood Pressure 137/73 Pulse Oximetry 96 Intake & Output 05/31/18 06/01/18 06/01/18 18:59 06:59 18:59 Intake Total 2400 / 2400 100 / 100 Output Total 1300 / 1300 550 / 550 Balance 1100 / 1100 -450 / -450 Intake: IV 400 / 400 100 / 100 Vancomycin Inj 1,000 MG In NS 250 / 250 Inj 250 ML @ 250 mls/hr IV.SIG OIL RIG DRILLER AUBREY Rx#:[id number] Ancef 2 GM Premix Inj 2 gm In 50 / 50 50 ml @ 100 mls/hr IV.SIG OIL RIG DRILLER AUBREY Rx#:[id number] Ancef Inj 1,000 MG In NS Inj 100 / 100 100 / 100 100 ML @ 200 mls/hr IV.SIG Q6H AUBREY Rx#:[id number] Oral 1100 / 1100 Anesthesia Amount 900 / 900 Output: Urine 500 / 500 550 / 550 Estimated Blood Loss 100 / 100 Urine Amount (Catheter) 700 / 700 Indwelling Urethral Catheter 700 / 700 Other: # Voids 1 Date of Last Bowel Movement 05/30/18 # Bowel Movements 0 Narrative: Laying in bed Cervical brace being worn NAD RN in room C/S Posterior dressing mild SS drainage, no erythema, mild spasm +motor UE - biceps/brachiorad, +sens, +nvi Neg homans bilat - Constitutional no acute distress - Urinary Catheter Management Indwelling Urethral Catheter Cath placed during this visit: no Results - Imaging Impressions Cervical Spine X-Ray 05/31/18 00:00 CONCLUSION: Intraoperative films demonstrate hardware as above - Procedures Posterior cervical fusion C34, C45; Laminectomy C23, C34 Assessment and Plan - Ortho Post Op Day # 1 - Assessment and Plan pod#1 Posterior cervical laminectomy C23, C34, Posterior cervical fusion C3-5 Pain moderately controlled. He was already on pain medicine prior to surgery. Right arm tingling but not change since surgery. Ok to d/c home today. Cervical brace demand generation manager for 4 weeks. He must sleep in the brace. He is NOT to drive without the brace. Dry dressing changes beginning tomorrow. Soft food diet for 48 hours to assist with throat soreness. F/U in 2 weeks as scheduled. No HHC needed.
[2018-06-01] MEDS: Senna/Docusate Sodium 8.6/50 MG Tablet PO SCH (08:33)
[2018-06-01] MEDS: Multivitamin/Minerals Therapeutic Tablet PO SCH (08:34)
--- NOTE | 2018-06-01 09:30 | P.OP ---
Date of procedure: 05/31/18 Procedure: 1. C2-C3 laminectomy 2. C3-C4 posterior cervical arthrodesis 3. C3-C5 posterior instrumentation with lateral mass screws at C3, C4 and C5 4. Placement of allograft Implants: [place] spine system, Choice Spine Anesthesia: GETA Surgeon: Chelly Narvaez MD Drilling Field Specialist: Twin Richardson Estimated blood loss (mL): 100 Pathology: none sent Operation and Findings: Indications for procedure: 62-year-old gentleman with cervical spondylosis with stenosis and myelopathy with balance disturbance. Patient has previously undergone anterior cervical discectomy with instrumented fusion from C3-4. He does have noted cervical stenosis at C2-3 with cord compression. Recommendation for posterior cervical laminectomy with instrumented fusion. Risks, benefits, alternatives were discussed with the patient. Description of procedure: Patient was brought back to the operating room where general anesthesia then ensued. Neuro monitoring leads along with IV access and Blair catheter were placed. A Joyner head clamp was then placed along the crown of his skull. Baseline neuromonitoring sensory and motor potentials were obtained prior to positioning the patient prone. The patient was then carefully positioned prone on the operating room table with all bony prominences well-padded. Joyner head clamp was affixed to the table to the appropriate contreras and his head placed into a slight chin tucked position. Again , neural monitoring potentials were obtained which were stable from baseline. A timeout was performed to identify the correct patient, side, site and procedures to performed. Antibiotics were given within 1 hour of incision. Radiographs were obtained and skin markings made for localization to the appropriate levels from C2-C5. We then made a midline incision. The paraspinals were meticulously elevated off of the posterior aspect of the cervical spine. Careful attention was made to preserve the cranial attachments to C2. Deep retractors were then placed. X-ray was used to confirm level. At this time, lateral mass screws were placed into C3, C4 and C5 bilaterally under fluoroscopic guidance. A small drill hole was made as a starting point in the mid point from medial to lateral in the lateral mass and verified on lateral radiographs to be in appropriate position in a cranial to caudal direction. The lateral mass screws were drilled, probed with a ball-tipped probe, tapped and appropriate length lateral mass screws positioned. This was repeated again bilaterally at C3, C4 and C5. All lateral mass screws obtain solid purchase. At this time, a laminectomy was performed at C2 and C3. This was performed with a high-speed bur and Kerrisons. A dome laminectomy of C2 was performed undercutting the spinous process and lamina and removing the ligamentum into the spinal cord and thecal sac appeared to be free of compression at this level. A small laminectomy was made at the cranial aspect of C3 again with the use of a high-speed bur and Kerrisons. The thecal sac appeared to be free of compression at this time. The wound was thoroughly irrigated. Small pre-contoured rods were then placed into the lateral mass screws bilaterally and set screws tightened down. The screws were final tightened. Radiographs were obtained which demonstrated appropriate positioning of all screws and rods. The wound was thoroughly irrigated. The posterior spinal elements were decorticated with a high-speed bur and cancellus chips along with stem cells placed as allograft bone graft for arthrodesis. Vancomycin powder was then placed into the wound. The fascia was closed with Vicryl sutures along with the subcutaneous tissue. The skin was closed and sterile dressings applied. Patient was then carefully positioned back supine on his hospital bed. A cervical collar placed. The Joyner head clamp was removed. Patient was awoken from general anesthesia without complication. It should be noted the patient remained hemodynamically stable and without any adverse neuromonitoring changes throughout the entire procedure. Disposition: Patient was instructed on strict use of his cervical collar.
[2018-06-01 09:58] VITALS: RESP 18
[2018-06-01 13:07] VITALS: BP 176/89; PULSE 59; TEMP 97.5; O2SAT 96
== END 2018-06-01 12:52 | disposition home or self-care (01) ==
LOC: HSDI 05:52 → N06 12:48
PROVIDERS: ADMIT Orthopaedic Surgery Orthopaedic Surgery of the Spine; ATTEND Orthopaedic Surgery Orthopaedic Surgery of the Spine